=== PATIENT | female | born 2000 | race Caucasian/White ===

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

== ENCOUNTER 2021-08-18 15:42 | Outpatient (CLI) | payer OTHER ==
[2021-08-18 15:59] LABS: BASOPHILS % (AUTO) 0.3 %; EOSINOPHILS % (AUTO) 0.3 %; HCT - HEMATOCRIT 35.4 % (37.0-47.0); HGB - HEMOGLOBIN 11.4 g/dL (12.0-16.0); LYMPHOCYTES # (AUTO) 2.6 10^3/uL (1.5-3.5); LYMPHOCYTES % (AUTO) 20.2 %; MEAN CORPUSCULAR HEMOGLOBIN 26.7 pg (27.0-31.0); MEAN CORPUSCULAR HGB CONC 32.2 g/dL (32.0-36.0); MEAN CORPUSCULAR VOLUME 82.9 fL (81.0-99.0); MONOCYTES # (AUTO) 0.8 10^3/uL (0.0-1.0); MONOCYTES % (AUTO) 6.4 %; NEUTROPHILS # (AUTO) 9.2 10^3/uL (1.5-6.6); NEUTROPHILS % (AUTO) 72.2 %; PLT - PLATELET COUNT 354 10^3/uL (130-450); RED BLOOD COUNT 4.27 10^6/uL (4.20-5.40); RED CELL DISTRIBUTION WIDTH 14.7 % (12.0-15.0); WHITE BLOOD COUNT 12.7 x10^3/uL (4.8-10.8)
[2021-08-19 02:08] LABS: HBsAG SCREEN Negative (Negative)
[2021-08-19 05:29] LABS: HCV AB 0.1 s/co ratio (0.0-0.9); HIV SCREEN 4TH GENERATION Non Reactive (Non Reactive)
[2021-08-19 08:10] LABS: RPR Non Reactive (Non Reactive); VARICELLA-ZOSTER AB IGG 393 index (Immune >165)
== END 2021-08-18 15:43 | disposition home or self-care (01) ==
LOC: LAB 15:42
PROVIDERS: ATTEND Nurse Practitioner Obstetrics & Gynecology
DX: Z36.89 Encounter for other specified antenatal screening (principal)
CPT/HCPCS: 36415; 85025; 86592; 86762; 86787; 86803; 86850; 86900; 86901; 87340; 87389

== ENCOUNTER 2021-09-03 15:00 | Outpatient (CLI) | payer OTHER ==
--- NOTE | 2021-09-03 18:50 | Ultrasound Report ---
PROCEDURE: OB Detailed Eval INDICATIONS: SUPERVISION OF OUTSIDE/PRIOR DATING DATA: Last menstrual period (LMP): 04/27/2021. LMP-based estimated date of delivery (MRASHALL): In 2021. First dating scan (date and location): 09/03/2021. Estimated date of delivery (MARSHALL) from first dating scan: 01/30/2022. TECHNIQUE: Real-time scanning was performed of the fetus, with image documentation and biometric measurements. Endovaginal scanning: None COMPARISON: None. FINDINGS: General: A single living intrauterine gestation is present. Presentation: Variable Placenta: Placental position is anterior, without previa. Amniotic fluid index: 11.3 cm, normal for gestational age. heart rate: 136 beats per minute. Maternal cervical canal: 5.9 cm long; normal length is 2.5 cm or more. biometrics: Biparietal diameter: 4.3 cm, 19 week 0 day Head circumference: 16.1 cm, 18 week 6 day Abdominal circumference: 13.6 cm, 19 week 1 day Femur length: 2.7 cm, 18 week 3 day Estimated gestational age from initial scan: 18 week 5 day Composite gestational age from present scan: 18 week 5 day Estimated weight and percentile: 256.3 g, 66th percentile Measurement variability in biometric dating: +/- 10 days from 12-20 weeks gestation, +/- 2 weeks from 20-30 weeks gestation, +/- 3 weeks at 30 weeks gestation or later. Anatomic survey: Neuro: Ventricles are normal at less than 10 mm. Cisterna magna is normal at 3-11 mm. Cerebellum i s normal in size and morphology. Nuchal skin fold: Normal at less than 6 mm between 14 and 20 weeks gestational age. Face: Nose and lips, facial profile are normal. Spine: No evidence for spina bifida. Heart: 4-chambered heart is present, with normal ventricular outflow tracts. Diaphragm: Diaphragm is intact. Stomach: Left-sided stomach is present. Kidneys: No hydronephrosis. Normal is less than 5 mm in 2nd trimester, less than 7 mm in 3rd trimester. Cord: 3 vessel cord has orthotopic insertion. Bladder: Normal in size. Extremities: All 4 extremities are visualized. IMPRESSION: Single live intrauterine consistent with 18 week 5 day gestation Reviewed by: Mike Loving MD on 09/03/2021 5:49 PM AKDT Approved by: Mike Loving MD on 09/03/2021 5:49 PM FARHAN Station ID: [id number]
== END 2021-09-03 15:01 | disposition home or self-care (01) ==
LOC: DI 15:00
PROVIDERS: ATTEND Nurse Practitioner Obstetrics & Gynecology
DX: Z34.02 Encounter for supervision of normal first pregnancy, second trimester (principal); Z36.89 Encounter for other specified antenatal screening

== ENCOUNTER 2021-12-10 13:22 | Outpatient (CLI) | payer OTHER ==
[2021-12-10 13:31] LABS: HCT - HEMATOCRIT 35.5 % (37.0-47.0); HGB - HEMOGLOBIN 11.5 g/dL (12.0-16.0); MEAN CORPUSCULAR HEMOGLOBIN 26.9 pg (27.0-31.0); MEAN CORPUSCULAR HGB CONC 32.4 g/dL (32.0-36.0); MEAN CORPUSCULAR VOLUME 83.1 fL (81.0-99.0); MEAN PLATELET VOLUME 9.6 fL (7.9-10.8); RED BLOOD COUNT 4.27 10^6/uL (4.20-5.40); RED CELL DISTRIBUTION WIDTH 18.9 % (12.0-15.0); WHITE BLOOD COUNT 13.6 x10^3/uL (4.8-10.8)
== END 2021-12-10 13:23 | disposition home or self-care (01) ==
LOC: LAB 13:22
PROVIDERS: ATTEND Nurse Practitioner Obstetrics & Gynecology
DX: O99.011 Anemia complicating pregnancy, first trimester (principal)
CPT/HCPCS: 36415; 85027

== ENCOUNTER 2022-01-23 02:23 | Inpatient (IN) | payer OTHER ==
[2022-01-23] MEDS ORDERED: fentaNYL 100 MCG/2 ML VIAL IVP PRN (04:33)
[2022-01-23] MEDS ORDERED: hydrALAZINE INJ 20 MG/ML VIAL IVP PRN ×2 (04:33)
[2022-01-23] MEDS ORDERED: miSOPROStoL 200 MCG TABLET BC PRN (04:33)
[2022-01-23] MEDS ORDERED: LABETALOL 20 MG/4 ML SYRINGE IVP PRN ×3 (04:33)
[2022-01-23] MEDS ORDERED: SODIUM CHLORIDE FLUSH 0.9% 10 ML SYRINGE IVP PRN (04:33)
[2022-01-23] MEDS ORDERED: NIFEdipine 10 MG CAPSULE PO PRN (04:33)
[2022-01-23] MEDS ORDERED: METHYLERGONOVINE 0.2 MG/ML VIAL IM PRN (04:33)
[2022-01-23] MEDS ORDERED: TRANEXAMIC ACID IN NACL 1,000 MG/100 ML BAG IV PRN (04:33)
[2022-01-23] MEDS ORDERED: TERBUTALINE 1 MG/ML VIAL SUBQ PRN (04:33)
[2022-01-23] MEDS ORDERED: OXYTOCIN 10 UNIT/ML VIAL IM PRN (04:33)
[2022-01-23] MEDS ORDERED: CARBOPROST TROMETHAMINE 250 MCG/ML AMP IM PRN (04:33)
[2022-01-23] MEDS ORDERED: lidocaine 1% 20 ML MDV ID PRN (04:33)
[2022-01-23] MEDS ORDERED: miSOPROStoL 200 MCG TABLET PR PRN (04:33)
[2022-01-23] MEDS ORDERED: OXYTOCIN/SODIUM CHLORIDE 500 ML IV PRN (04:33)
[2022-01-23] MEDS ORDERED: SODIUM CHLORIDE FLUSH 0.9% 10 ML SYRINGE IVP SCH (05:00)
[2022-01-23 06:25] LABS: BASOPHILS # (AUTO) 0.1 10^3/uL (0.0-0.1); BASOPHILS % (AUTO) 0.4 %; EOSINOPHILS % (AUTO) 0.1 %; HCT - HEMATOCRIT 37.3 % (37.0-47.0); HGB - HEMOGLOBIN 12.6 g/dL (12.0-16.0); LYMPHOCYTES # (AUTO) 1.9 10^3/uL (1.5-3.5); LYMPHOCYTES % (AUTO) 11.9 %; MEAN CORPUSCULAR HEMOGLOBIN 27.8 pg (27.0-31.0); MEAN CORPUSCULAR HGB CONC 33.8 g/dL (32.0-36.0); MEAN CORPUSCULAR VOLUME 82.3 fL (81.0-99.0); MEAN PLATELET VOLUME 10.2 fL (7.9-10.8); MONOCYTES # (AUTO) 1.1 10^3/uL (0.0-1.0); MONOCYTES % (AUTO) 6.8 %; NEUTROPHILS # (AUTO) 12.3 10^3/uL (1.5-6.6); NEUTROPHILS % (AUTO) 79.4 %; PLT - PLATELET COUNT 239 10^3/uL (130-450); RED BLOOD COUNT 4.53 10^6/uL (4.20-5.40); RED CELL DISTRIBUTION WIDTH 17.1 % (12.0-15.0); WHITE BLOOD COUNT 15.5 x10^3/uL (4.8-10.8)
[2022-01-23] MEDS ORDERED: LACTATED RINGERS 1,000 ML ONE (07:37)
--- NOTE | 2022-01-23 07:55 | HISTORY & PHYSICAL EXAMINATION ---
Admit History - Visit Reason Visit Reason: Contractions - : 1 Parity: 0 Premature: 0 Ectopic: 0 : 0 Care: positive: [facility] Risk/History: positive: None Complications This : positive: None Smoking Status: Never smoker - Mother's Labs Mother's Blood Type: positive: O Mother's RH: positive: Positive GBS: positive: Group B Step Negative Rubella Status: positive: Immune Meds/Allgy - Home Medications Home Medications: Ambulatory Orders Medication Instructions Recorded Confirmed Albuterol Sulfate [Albuterol 1 puffs INH Q4HR PRN 11/20/13 06/22/20 Sulfate Hfa] Omeprazole Magnesium 20 mg PO DAILY 06/22/20 07/17/20 Albuterol Sulf [Ventolin Hfa 2 - 3 puffs INH Q4HR PRN #1 inhaler 07/17/20 Inhaler] HYDROcod/ACETAM 5/325 [[place] 5/325] 1 ea PO Q6H PRN #14 tablet 07/17/20 Saysara 0 mg DAILY 07/17/20 dexAMETHasone [Decadron] 4 mg PO DAILY #7 tablet 07/17/20 - Allergies Allergies/Adverse Reactions: Allergies Allergy/AdvReac Type Severity Reaction Status Date / Time Antihistamines - Piperidine Allergy Respiratory Verified 07/17/20 11:09 naproxen [From Aleve] AdvReac Itching Verified 07/17/20 11:09 Review of Systems - Constitutional Constitutional: denies: Fatigue, Fever, Chills, Malaise - Eyes Eyes: denies: Blurred vision, Spots in vision, Dipolpia - Cardiovascular Cariovascular: denies: Irregular heart rate, Palpitations, Chest pain, Edema - Respiratory Respiratory: denies: Cough, Wheezing, SOB at rest - Gastrointestinal Gastrointestinal: denies: Constipation, Diarrhea, Nausea, Vomiting - Genitourinary Genitourinary: denies: Dysuria - Integumentary Integumentary: denies: Rash, Pruritis - Neurological Neurological: denies: Headache Physical - Abdominal Exam Vital Signs: Temp Pulse Resp BP Pulse Ox O2 Flow Rate 36.9 C 75 20 112/77 100 01/23/22 05:23 01/23/22 05:23 01/23/22 05:23 01/23/22 05:23 01/23/22 02:45 Contraction Frequency (min/apart): 2-4 Contraction Intensity: positive: Strong Uterine Resting Tone: positive: Soft - Monitoring Heart Rate Baseline: 135 Strip Review: positive: Category I - Presentation Presentation: positive: Vertex - Vaginal Exam Membranes: positive: Membranes intact Dilation (in cm): 7 Effacement (%): 100 Station: positive: -1 Cervical Position: positive: Midposition - Speculum Exam Speculum Exam Performed: positive: No Plan for Labor - Plan For Labor I expect patient to be DC'd or transferred within 96 hours.: Yes Plan for Labor: HPI: Rajiv is a 21yo @ 39.0wks gestation by 18.5wk ultrasound which was not consistent with her reportedly unknown LMP dating. She reports contractions started 01/22/2022 @ approximately 2200 and have increased in frequency and intensity since that time. She denies vaginal bleeding or leakage of fluid. She reports +FM. SVE upon arrival /-2, posterior and vertex with intact membranes. Pt monitored x 1 hour and repeat SVE reveals cervical change with SVE 80/-1, midposition and vertex. She was admitted for expectant management. She has been a patient of [facility] for the duration of her for which she was late to seek care with first visit at 16wks gestation. She had an unsure LMP which was not consistent with her initial ultrasound at 18wks and therefore is dated by an 18.5wk ultrasound. She has limited financial resources and she and her partner Tyler are currently living with the patient's parents in [place] and neither of them are employed at this time. Her has been complicated by mild anemia for which FeSO4 was initiated at 27wks gestation and her lab values responded well to oral supplementation. Her has otherwise remained uncomplicated and she has received consistent care since 16wks gestation. Dating criteria: LMP unknown Initial U/S @ 18.5wks dates with [facility] 01/30/2022 Serial exams - agree vendette Hx: Term NSVB x 0. SAB x0. No pap history. Denies HSV in self and partner. Medical Hx: no significant Surgical Hx: eye surgery x 2 Family Hx: HTN - father; breast cancer - mother; bone cancer - mother; schi zophrenia - MGM; bipolar - MGM Meds: PNV, FeSO4 bid, Citalopram 20mg, omeprazole 40mg, albuterol inhaler PRN - has not used in several years. Allergies: Naproxen Social: Single lives with partner Tyler. She is not currently working and neither is her partner. Her parents live in [place] and have offered to move them in with them to help out. She states her parents are supportive. Past THC use but quit for . No tobacco, ETOH or recreational drug use currently. Caffeine intake -minimal. course: O pos; antibody neg Rubella immune; varicella immune Initial U/S @ 18wks dates FAS WNL. Anterior placenta, no previa. 3VC. Glucola 131 GBS neg Tdap @ 32wks Covid x 2 - no booster GBS negative Physical exam: Normocephalic, atraumatic Heart RRR w/o M/G/R Lungs CTAB Abdomen gravid, soft, nontender. EFW 3400g FHR baseline 130s, moderate variability, + accels, no decels Contractions palpate strong every 2-4 minutes with soft resting tone SVE 4/90/-2, midposition, vertex with intact membranes. Bilateral LE's trace edema. Mood is good. Assessment: 21yo @ 39.0wks gestation by 18.5wk U/S Active labor GBS neg FHR Category I Plan: Admit to [facility] for expectant management. Continuous monitoring. Jacuzzi PRN. Nitrous oxide PRN. Epidural per maternal request. Anticipate .
[2022-01-23] MEDS ORDERED: ROPIVACAINE 0.2% 200 MG/100 ML BAG EP ONE (08:07)
--- NOTE | 2022-01-23 08:09 | PROVIDER PROGRESS NOTE ---
Labor Progress Note - Uterine Monitoring Uterine Monitoring Mode: positive: External toco Contraction Frequency (min/apart): 2-4 Contraction Intensity: positive: Strong Uterine Resting Tone: positive: Soft - Monitoring Monitor Mode: positive: External ultrasound Heart Rate Baseline: 130 Heart Rate Variability: positive: Moderate (6-25 bmp) Accelerations: positive: Present, 15x15 Decelerations: positive: None Strip Review: positive: Category I - Vaginal Exam Dilation (in cm): 7 Effacement (%): 100 Station: -1 Cervical Position: Midposition - Labor Progress Note Labor Progress Note/Additional Text: S: Breathing through contractions and requests epidural at this time. A small amount of bloody show was present on pad when she removed it for SVE. She denies leakage of fluid. She reports +FM. Her partner Tyler is supportive at the bedside. O: FHR baseline 130, moderate variability, + accels, no decels Contractions palpate strong every 2-4 minutes with soft resting tone SVE 7/100/-1, midposition. Vertex with bulging membranes. A: 21yo @ 39.0wks gestation by 18.5wk U/S Active labor GBS neg FHR Category I P: Anesthesia notified for placement of epidural per pt request. Continuous monitoring. Anticipate .
[2022-01-23] MEDS ORDERED: LACTATED RINGERS 1,000 ML IV SCH (09:00)
[2022-01-23] MEDS ORDERED: ePHEDrine 50 MG/ML VIAL IVP PRN (09:30)
[2022-01-23] MEDS ORDERED: NALBUPHINE 10 MG/ML AMP IVP PRN (09:30)
[2022-01-23] MEDS ORDERED: METOCLOPRAMIDE 10 MG/2 ML VIAL IVP PRN (09:30)
[2022-01-23] MEDS ORDERED: ROPIVACAINE 0.2% 200 MG/100 ML BAG EP PRN (09:30)
[2022-01-23] MEDS ORDERED: diphenhydrAMINE INJ 50 MG/ML VIAL IVP PRN (09:30)
[2022-01-23] MEDS ORDERED: NALOXONE 0.4 MG/ML VIAL IVP PRN (09:30)
[2022-01-23] MEDS ORDERED: ONDANSETRON 4 MG/2 ML VIAL IVP PRN (09:30)
--- NOTE | 2022-01-23 09:30 | ANESTHESIA ---
Pre-Anesthesia VS, & Labs - Diagnosis active labor - Procedure labor epidural Vital Signs: Temp Pulse Resp BP Pulse Ox O2 Flow Rate 36.9 C 75 20 112/77 100 01/23/22 05:23 01/23/22 05:23 01/23/22 05:23 01/23/22 05:23 01/23/22 02:45 Height: 5 ft 4 in Weight (kg): 79.832 kg Body Mass Index: 30.2 BMI Classification: Obese - NPO Other (drinking up until epidural) - Is Patient ?: Yes - Lab Results Current Lab Results: Laboratory Tests 01/23/22 05:45: WBC 15.5 H, RBC 4.53, Hgb 12.6, Hct 37.3, MCV 82.3, MCH 27.8, MCHC 33.8, RDW 17.1 H, Plt Count 239, MPV 10.2, Neut # (Auto) 12.3 H, Lymph # (Auto) 1.9, Wheeler # (Auto) 1.1 H, Eos # (Auto) 0.0, Baso # (Auto) 0.1, Absolute Nucleated RBC 0.00, Nucleated RBC % 0.0 01/23/22 05:45: Blood Type O POSITIVE, Antibody Screen NEGATIVE Fish Bones: 01/23/22 05:45 Home Medications and Allergies Active Medications Carboprost Tromethamine (Carboprost Tromethamine 250 Mcg/Ml Amp) 250 mcg IM .ONCE PRN PRN Reason: Hemorrhage Fentanyl (Fentanyl 100 Mcg/2 Ml Vial) 50 mcg IVP Q1H PRN PRN Reason: Severe Pain (score 7-10) Hydralazine HCl (Hydralazine Inj 20 Mg/Ml Vial) 5 - 10 mg IVP Q20M PRN; Protocol PRN Reason: SBP> or= 160 OR DBP> or= 110 Hydralazine HCl (Hydralazine Inj 20 Mg/Ml Vial) 10 mg IVP .ONCE PRN; Protocol PRN Reason: SBP> or= 160 OR DBP> or= 110 Oxytocin/Sodium Chloride (Pitocin/Sodium Chloride) 500 mls @ 999 mls/hr IV PRN PRN; Protocol PRN Reason: POST- HEMORR PREVENTION Tranexamic Acid (Tranexamic 1,000 Mg/100ml-Nacl) 1,000 mg in 100 mls @ 600 mls/hr IV Q30M PRN PRN Reason: EBL >1200mL and within 3hr Lactated Ringer's (Lr) 1,000 mls @ 125 mls/hr IV .Q8H EDWAR Labetalol HCl (Labetalol 20 Mg/4 Ml Syringe) 20 - 80 mg IVP Q10M PRN; Protocol PRN Reason: SBP> or= 160 OR DBP> or= 110 Labetalol HCl (Labetalol 20 Mg/4 Ml Syringe) 20 mg IVP .ONCE PRN; Protocol PRN Reason: SBP> or= 160 OR DBP> or= 110 Labetalol HCl (Labetalol 20 Mg/4 Ml Syringe) 20 - 40 mg IVP Q10M PRN; Protocol PRN Reason: SBP> or= 160 OR DBP> or= 110 Lidocaine HCl (Lidocaine 1% 20 Ml Mdv) 20 ml ID .ONCE PRN PRN Reason: PERINEAL REPAIR Stop: 01/26/22 04:38 Methylergonovine Maleate (Methylergonovine 0.2 Mg/Ml Vial) 0.2 mg IM .ONCE PRN PRN Reason: Hemorrhage Misoprostol (Misoprostol 200 Mcg Tablet) 600 mcg BC .ONCE PRN PRN Reason: Hemorrhage Misoprostol (Misoprostol 200 Mcg Tablet) 800 mcg CA .ONCE PRN PRN Reason: Hemorrhage Nifedipine (Nifedipine 10 Mg Capsule) 10 - 20 mg PO Q20M PRN; Protocol PRN Reason: SBP> or= 160 OR DBP> or= 110 Oxytocin (Oxytocin 10 Unit/Ml Vial) 10 unit IM .ONCE PRN PRN Reason: Step One if no IV access. Sodium Chloride (Sodium Chloride Flush 0.9% 10 Ml Syringe) 10 ml IVP PRN PRN PRN Reason: NEEDED PER PROVIDER ORDERS Sodium Chloride (Sodium Chloride Flush 0.9% 10 Ml Syringe) 10 ml IVP Q8H EDWAR Terbutaline Sulfate (Terbutaline 1 Mg/Ml Vial) 0.25 mg SUBQ .ONCE PRN PRN Reason: Tachystole Albuterol Sulfate [Albuterol Sulfate Hfa] 1 puffs INH Q4HR PRN 11/20/13 Omeprazole Magnesium 20 mg PO DAILY 06/22/20 Saysara 0 mg DAILY 07/17/20 Allergies/Adverse Reactions: Allergies Allergy/AdvReac Type Severity Reaction Status Date / Time Antihistamines - Piperidine Allergy Respiratory Verified 07/17/20 11:09 naproxen [From Aleve] AdvReac Itching Verified 07/17/20 11:09 Anes History & Medical History - Anesthetic History Anesthesia Complications: reports: No previous complications Family history of Anesthesia Complications: Denies Family history of Malignant Hyperthermia: Denies - Medical History Cardiovascular: reports: None Pulmonary: reports: Asthma Gastrointestinal: reports: GERD Smoking Status: Never smoker - Obstetrical History : 1 Parity: 0 Events: reports: None Complications: reports: None Exam General: Alert, Oriented x3, Cooperative Dental: WNL Mouth Openin Fingerbreadth Neck Mobility: Normal Mallampati classification: II Thyromental Distance: 4-6 cm Respiratory: Lungs clear Cardiovascular: Regular rate Plan Anesthesia Type: Epidural Consent for Procedure(s) Verified and Reviewed: Yes Code Status: Attempt Resuscitation ASA classification: 2-Mild systemic disease Is this case an emergency?: No
[2022-01-23] MEDS ORDERED: HYDROCORTISONE 1% CREAM 28 GM TUBE PR PRN (12:27)
[2022-01-23] MEDS ORDERED: WITCH HAZEL/GLYCERIN 1 PAD TOP PRN (12:27)
--- NOTE | 2022-01-23 12:27 | DELIVERY NOTE ---
Delivery Note - Labor Labor: positive: Spontaneous - Delivery Method Delivery Method: positive: Spontaneous vaginal delivery - Presentation Presentation: positive: Vertex, DEMETRIUS - right occiput anterior - Nuchal Cord Nuchal Cord: positive: None - Amniotic Fluid Description Amniotic Fluid Description: positive: Clear - Episiotomy Type Episiotomy Type: positive: None - Laceration Laceration: positive: 1st degree, Vaginal - Suture Suture Type: positive: Vicryl Suture Size: positive: 2-0 - Delivery Outcome Delivery Outcome: positive: Livebirth - Ranger : positive: Placed in direct skin contact with mother, Bulb syringe, Stimulated, Warmed, Morven used, Warmer used sex: positive: Male - Cord Cord: positive: 3 vessels - Placenta Placenta: positive: Intact, Spontaneous - Estimated Blood Loss Estimated Blood Loss (in cc): 200 - Post Delivery Events Post Delivery Events: positive: No post delivery events - Delivery Comments (Free Text/Narrative) Delivery Comments (Free Text/Narrative): Labor: This 21yo @ 39.0wks gestation by 18.5wk U/S presented on 01/23/2022 in active labor. She was noted to be 3/90/-1 with a repeat 4/90/-1 an hour later and vertex. FHR pattern demonstrated Category I pattern throughout labor. SROM @ 0753 was noted to be a moderate amount of clear fluid. Epidural was placed per maternal request however was unable to give patient relief from her contractions likely secondary to advanced dilation. Normal labor course. Pt progressed to c/c/0 @ 0846 with onset of pushing at 0847. : Normal SVB of viable male infant on 01/23/2022 @ 1045. No nuchal cord. The was placed on maternal abdomen, stimulated, dried and secondary to lack of respiratory effort, was moved to infant warmer at 60 seconds of life for evaluation. Apgars were 5/9 at 1 and 5 minutes respectively. Pitocin administered via IV for hemostatis. Cord blood was obtained. Fundal massage and gentle cord traction applied for active management of the third stage. 3VC. Pitocin delivered spontaneously and intact at 1050. EBL 200mL. Fourth stage: Uterine fundus firm and there is no excessive bleeding. The perineum, vagina, and cervix were inspected and found to have 1st degree laceration which was repaired using a 2-[address]-1 needle in standard fashion and under sterile conditions. Vaginal examination follow repair was done. Tissues well approximated. initiated. Family bonding well. Both mother and baby were left in stable condition.
[2022-01-23] MEDS: ACETAMINOPHEN 500 MG TABLET PO SCH (14:26)
[2022-01-23] MEDS: DOCUSATE SODIUM 100 MG CAPSULE PO SCH (20:38)
[2022-01-24] MEDS: ACETAMINOPHEN 500 MG TABLET PO SCH ×2 (07:28→15:40)
[2022-01-24] MEDS: DOCUSATE SODIUM 100 MG CAPSULE PO SCH ×2 (08:20→21:49)
[2022-01-25] MEDS: ACETAMINOPHEN 500 MG TABLET PO SCH (00:20)
--- NOTE | 2022-01-25 10:52 | Discharge Plan ---
Discharge Plan Problem Reviewed?: Yes Disposition: Home, Self Care Condition: Good Diet: Regular Activity Restrictions: No Restrictions Shower Restrictions: No Instruction Topics: Vaginal After No Smoking: If you smoke, Please STOP! Call for help. Follow-up with: Abigail Gunderson CNM, ARNP [Provider Admit Priv/Credential] -
--- NOTE | 2022-01-25 10:57 | DISCHARGE SUMMARY ---
Discharge Summary Condition at Discharge: Good Discharge Disposition: 01 Home, Self Care - HOSPITAL COURSE Hospital Course: Date of Admission:01/23/2022 Date of Discharge: 01/25/2022 Diagnosis on Admission: 1. 21yo @ 39.0wks gestation by 18.5wk U/S 2. Active labor 3. GBS neg 4. FHR Category I Diagnosis on Discharge: 1. 21yo PPD#2 s/p TSVD viable male infant 2. 3. Normal recovery Brief History: She is a patient of [facility] who presented on 01/23/2022 in active labor. Upon arrival she was noted to be 3/90/-1 with repeat in 1 hour 4/90/-1 with intact membranes. SROM @ 0753 was noted to be a moderate amount of clear fluid. She progressed spontaneously to deliver a viable male on 01/23/2022 @ 1045 followed a prolonged 2nd stage and over intact perineum. Apgars were 5/9 at 1 and 5 minutes respectively. EBL 200mL. She has been doing well in her course. She is ambulating and tolerating a regular diet. She is urinating without difficulty and her lochia is normal. Her pain is well controlled with oral medications. She is bonding well with her baby and is without difficulty. She will be discharged home today on day #2 with instructions to continue taking her vitamin while and to continue taking ibuprofen and tylenol over the counter as needed for pain management. She intends to follow up with myself at [facility] in 1 week for routine visit or sooner if needed. She has been given precautions to call if she has any worsening fevers, chills, abdominal pain, increased vaginal bleeding or foul smelling vaginal lochia. Physical Exam: Normocephalic, atraumatic. Heart RRR w/o M/G/R, lungs CTAB, abdomen soft and nontender with fundus firm at U-2, perineum intact, light lochia rubra, bilateral LE's trace edema. Mood is good. - ALLERGIES Allergies/Adverse Reactions: Allergies Allergy/AdvReac Type Severity Reaction Status Date / Time Antihistamines - Piperidine Allergy Respiratory Verified 07/17/20 11:09 naproxen [From Aleve] AdvReac Itching Verified 07/17/20 11:09 - MEDICATIONS Home Medications: Ambulatory Orders Medication Instructions Recorded Confirmed Albuterol Sulfate [Albuterol 1 puffs INH Q4HR PRN 11/20/13 06/22/20 Sulfate Hfa] Omeprazole Magnesium 20 mg PO DAILY 06/22/20 07/17/20 Albuterol Sulf [Ventolin Hfa 2 - 3 puffs INH Q4HR PRN #1 inhaler 07/17/20 Inhaler] HYDROcod/ACETAM 5/325 [Fletcher 5/325] 1 ea PO Q6H PRN #14 tablet 07/17/20 Saysara 0 mg DAILY 07/17/20 dexAMETHasone [Decadron] 4 mg PO DAILY #7 tablet 07/17/20 - LABS Result Diagrams: 01/23/22 05:45
[2022-01-25 12:13] VITALS: BP 120/71
--- NOTE | 2022-01-25 12:19 | Labor Flowsheet ---
Labor Flowsheet Datetime Report Generated by CPN: 01/25/2022 12:18 Datetime: 01/24/2022 04:19 VITAL SIGNS NBP Sys/Kalyn/Mean (mmHg): 103 : 43 : 58 Pulse: 68 Datetime: 01/23/2022 12:25 Stage of : Recovery Respirations: 17 SpO2 (%): 98 Temperature (C): 36.6 Temperature Route: Oral PAIN Pain Scale: 4 Pain Presence: Intermittent Datetime: 01/23/2022 10:30 Pushing Progress: Descent with Pushing Datetime: 01/23/2022 10:15 UTERINE ACTIVITY Monitor Mode: External Frequency (min): 2-3 Quality: Strong Duration (sec): 50 Pattern: Normal: <= 5 Contractions in 10 Minutes Resting Tone (Palpate): Relaxed Comments: 135-150 in between pushing LaborFlag: Labor Datetime: 01/23/2022 09:45 ASSESSMENT A Monitor Mode: Telemetry FHR Baseline Rate : 135 FHR Baseline Changes: No Baseline Change Variability: Moderate 6-25 bpm Accelerations: 15X15 Decelerations: None Category: Category I Oxygen Method: Room Air Datetime: 01/23/2022 09:00 Monitor Interventions for FHR: Ultrasound Adjusted Datetime: 01/23/2022 08:47 VAGINAL EXAM Dilatation (cm): 10.0 STAGE 2 Pushing: Coached on Pushing; Urge to Push Pushing Position: Pushing with Contractions Datetime: 01/23/2022 08:39 Exam by: terry dany cnm Datetime: 01/23/2022 08:28 Epidural Procedure Other: Pump Started Datetime: 01/23/2022 08:26 Patient Position/Activity: Left Tilt Datetime: 01/23/2022 08:23 PROCEDURE TIME OUT Procedure Verify: Correct Patient Identity; Accurate Procedure Consent Form; Agreement on Procedure to be Done; Correct Patient Position; Addressed Need to Administer Antibiotics or Fluids for Irrigat ion; Safety Precautions Based on Patient History or Medication Use ANESTHESIA Anesthesia Plans: Epidural Epidural Positioning: Sitting Epidural Procedure: Cath Placed Datetime: 01/23/2022 08:14 Pain Assessment Comments: feeling pressure COMMUNICATION Communication: Provider at Bedside Communication Comments: terry dany at bedside to check cervix prior to epidural Datetime: 01/23/2022 08:10 Anesthesia Comments: tyler here for epidural placement Datetime: 01/23/2022 07:57 PATIENT CARE IV/Blood Work: IV Bolus Started Datetime: 01/23/2022 07:51 Pain Coping: Requesting Pain Medication or Epidural Datetime: 01/23/2022 07:48 Effacement (%): 100 Station: -1 Datetime: 01/23/2022 07:23 Patient Care Comments: using nitrous Datetime: 01/23/2022 06:30 Bedside Blood Glucose: 36 Datetime: 01/23/2022 06:22 MEDICATIONS Medication Comments: nitrous started
--- NOTE | 2022-01-25 13:17 | PROVIDER PROGRESS NOTE ---
Subjective - Subjective Subjective: S: Bonding well with baby. without difficulty. Bleeding is decreased and is light. Pain well controlled with oral medications. Partner Tyler supportive at the bedside. O: Heart RRR w/o M/G/R, lungs CTAB, abdomen soft and nontender with fundus firm at U, perineum intact, light lochia rubra, bilateral LE's no edema. Mood is good. A: 21yo -->P1 PPD#1 s/p TSVD viable male Normal recovery P: Continue routine pp care and medications. Social work consult pending Evaluate for discharge home tomorrow. Objective - Vital Signs/Intake & Output Vital Signs: Vital Signs x48h Temp Pulse Resp BP Pulse Ox 01/25/22 10:00 36.8 C 70 16 120/71 99 Intake & Output: Intake & Output 01/23/22 01/23/22 01/24/22 01/25/22 00:59 23:59 23:59 23:59 Intake Total 300 Output Total Balance 300 - Lab Results Fish Bones: 01/23/22 05:45
--- NOTE | 2022-01-28 10:21 | ANESTHESIA POST OP EVALUATION ---
Anesthesia Post Eval - Post Anesthesia Eval Vitals: Last Vital Signs Temp 36.8 C 01/25/22 10:00 Pulse 70 01/25/22 10:00 Resp 16 01/25/22 10:00 BP 120/71 01/25/22 10:00 Pulse Ox 99 01/25/22 10:00 O2 Flow Rate CV Function Including HR & BP: Stable Pain Control: Satisfactory Nausea & Vomiting: Negative Mental Status: Baseline Respiratory Status: Airway Patent Hydration Status: Satisfactory Anesthesia Complications: None
--- NOTE | 2022-02-01 14:57 | PROCEDURE REPORT ---
- HPI Diagnosis/Indication for NST: Other Current EDU 01/30/22 Gestation 39 Weeks and 0 Days 1 Para 0 Vital Signs Temperature 36.9 C 01/23/22 02:45 Heart Rate 75 01/23/22 02:45 Respiratory Rate 20 01/23/22 02:45 Blood Pressure 112/77 01/23/22 02:45 O2 Saturation 100 01/23/22 02:45 Temperature 36.8 C 01/25/22 10:00 Heart Rate 70 01/25/22 10:00 Respiratory Rate 16 01/25/22 10:00 Blood Pressure 120/71 01/25/22 10:00 O2 Saturation 99 01/25/22 10:00 If not protocol: Oxygen Flow, liters/minute - NST Procedure NST Procedure Start Date 01/23/22 Start Time 02:52 Stop Time 03:12 Vibroacoustic Stimulation Used No Patient States Movement Yes - Results and Plan Plan: NST performed 01/23/2022 NST read 01/23/2022 NST reactive. FHR baseline 140s, moderate variability, + accels, no decels Contractions palpate firm every 2-3 minutes with soft resting tone
== END 2022-01-25 11:40 | disposition home or self-care (01) | DRG 807 ==
LOC: WFO 02:23 → FBP 02:26 → WFO 04:14 → FBP 04:15
PROVIDERS: ADMIT Nurse Practitioner Obstetrics & Gynecology; ATTEND Nurse Practitioner Obstetrics & Gynecology
PROC: 0HQ9XZZ Repair Perineum Skin, External Approach (ICD-10-PCS; principal; 2022-01-23)
PROC: 10E0XZZ Delivery of Products of Conception, External Approach (ICD-10-PCS; 2022-01-23)
DX: O70.0 First degree perineal laceration during delivery (principal); Z37.0 Single live birth; O63.1 Prolonged second stage (of labor); Z3A.39 39 weeks gestation of pregnancy; Z56.0 Unemployment, unspecified
CPT/HCPCS: 59025; 85025; 86850; 86900; 86901; 99215; A9270; J7120

== ENCOUNTER 2022-03-27 19:15 | Emergency (ER) | payer MEDICAID, OTHER ==
[2022-03-27 19:27] VITALS: BP 100/44
--- NOTE | 2022-03-27 19:51 | XRAY Report ---
PROCEDURE: Wrist 3 View LT INDICATIONS: proxima wrist/thumb pain TECHNIQUE: 3 views of the wrist were acquired. COMPARISON: Right wrist radiographs 03/14/2019. FINDINGS: Bones: No fractures or dislocations. No suspicious bony lesions. Soft tissues: No suspicious soft tissue calcifications. IMPRESSION: No acute osseous abnormality. If symptoms persist, follow-up radiographs and/or CT or MRI may be help ful for further evaluation. Reviewed by: John Webb MD on 03/27/2022 7:50 PM PST Approved by: John Webb MD on 03/27/2022 7:50 PM PST Station ID: [id number]
[2022-03-27] MEDS ORDERED: IBUPROFEN 600 MG TABLET PO STA (20:16)
--- NOTE | 2022-03-27 20:19 | ED Physician Documentation ---
History of Present Illness - Stated complaint Stated Complaint: LT WRIST PX - Chief complaint Chief Complaint: Ext Problem - History obtained from History obtained from: Patient - Additonal information Additional information: 22-year-old woman with history of right wrist tendinopathy, [id number], presents with left wrist pain for the past 1-1/2 weeks, first noticed after waking from sleep. Patient has had waxing and waning pain since that time and it was worse today so she came to the emergency department. Has not tried NSAIDs or other [id number] analgesics for pain but does state that icing helps. She does have a wrist brace from home. note just had a new baby two months ago. Review of Systems Musculoskeletal: reports: Joint pain PD PAST MEDICAL HISTORY - Past Medical History Past Medical History: Yes Cardiovascular: None Respiratory: Asthma GI: GERD - Past Surgical History Past Surgical History: Yes - Present Medications Home Medications: Ambulatory Orders Medication Instructions Recorded Confirmed Albuterol Sulfate [Albuterol 1 puffs INH Q4HR PRN 11/20/13 03/27/22 Sulfate Hfa] Omeprazole Magnesium 20 mg PO DAILY 06/22/20 03/27/22 Norethindrone 1 tab PO DAILY 03/27/22 03/27/22 - Allergies Allergies/Adverse Reactions: Allergies Allergy/AdvReac Type Severity Reaction Status Date / Time Antihistamines - Piperidine Allergy Respiratory Verified 03/27/22 19:21 naproxen [From Aleve] AdvReac Itching Verified 03/27/22 19:21 - Social History Does the pt smoke?: No Smoking Status: Never smoker Does the pt drink ETOH?: Yes Does the pt have substance abuse?: No - Immunizations Immunizations are current?: Yes - POLST Patient has POLST: No PD ED PE NORMAL - Vitals Vital signs reviewed: Yes - General General: Alert and oriented X 3, No acute distress, Well developed/nourished - HEENT HEENT: Atraumatic, PERRL, EOMI - Derm Derm: Normal color, Warm and dry - Extremities Extremities: Other (L radial pulse intact. normal cap refill, movement, sensation. radial aspect of volar wrist discomfort to palpation. discomfort with full flexion of wrist.) - Psych Psych: Normal mood, Normal affect Results - Vitals Vitals: Vital Signs - 24 hr 03/27/22 19:23 Temperature 36.8 C Heart Rate 74 Respiratory 16 Rate Blood Pressure 100/44 L O2 Saturation 97 Oxygen O2 Source Room air PD Medical Decision Making - ED course ED course: 22-year-old woman presented with new onset left wrist discomfort consistent with tendinopathy. XR negative for fracture. 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 Wrist splint placed and symptomatic care discussed. Referral placed to orthopedics as needed. Plan to follow-up with primary care provider. Departure - Departure Disposition: 01 Home, Self Care Clinical Impression: Tendinopathy Condition: Good Instructions: ED RICE Follow-Up: Dionisio Pang MD [Provider Admit Priv/Credential] - Comments: You were seen in the emergency department for tendinitis of the wrist. Please continue to wear a wrist splint during the day and ice for 20 minutes every hour. elevate above the level of the heart. Take ibuprofen 600 mg every 6 hours as needed for pain. Return to the emergency department for new or worsening symptoms or other concerns. I have enclosed a referral to orthopedics and you can follow-up with them as needed.
== END 2022-03-27 20:26 | disposition home or self-care (01) ==
LOC: ED 19:15
DX: M77.8 Other enthesopathies, not elsewhere classified (principal)
CPT/HCPCS: 99283

== ENCOUNTER 2022-05-28 14:11 | Emergency (ER) | payer MEDICAID ==
[2022-05-28 14:34] VITALS: BP 116/61
--- NOTE | 2022-05-28 14:36 | ED Physician Documentation ---
PD HPI UPPER EXT INJURY - Stated complaint Stated Complaint: L WRIST INJ F/U - Chief complaint Chief Complaint: Ext Problem - History obtained from History obtained from: Patient - History of Present Illness Location: Left, Wrist Type of injury: Other (she has a 4 month old child and does most of the carrying with left arm/hand. Also does angel with lot of thumb controls usage. Generally right handed.). No: Fall, Twist Where injury occurred: Home Timing - onset: How many months ago (has had some symptoms for 3 months. Has had thumb spica velcro wrist splint that was helping but still hurting. More hurting the past couple of weeks.) Timing - duration: Months Timing - details: Gradual onset, Still present, Waxing and waning Worsened by: Moving (thumb extension mostly.), Palpating Associated symptoms: No: Weakness, Numbness, Swelling Similar symptoms before: Has not had sx before Recently seen: Emergency Dept (seen for this few weeks ago with splint given, presumed tendonitis.) Review of Systems Skin: denies: Rash, Lesions Neurologic: denies: Focal weakness, Numbness PD PAST MEDICAL HISTORY - Past Medical History Cardiovascular: None Respiratory: Asthma GI: GERD - Past Surgical History Past Surgical History: Yes - Present Medications Home Medications: Ambulatory Orders Medication Instructions Recorded Confirmed Albuterol Sulfate [Albuterol 1 puffs INH Q4HR PRN 11/20/13 03/27/22 Sulfate Hfa] Omeprazole Magnesium 20 mg PO DAILY 06/22/20 03/27/22 Norethindrone 1 tab PO DAILY 03/27/22 03/27/22 Acetaminophen [Acetaminophen Extra 500 mg PO QID PRN #50 tablet 05/28/22 Strength] Meloxicam [Mobic] 7.5 mg PO BID 10 Days #30 tablet 05/28/22 - Allergies Allergies/Adverse Reactions: Allergies Allergy/AdvReac Type Severity Reaction Status Date / Time Antihistamines - Piperidine Allergy Respiratory Verified 05/28/22 14:34 naproxen [From Aleve] AdvReac Itching Verified 05/28/22 14:34 - Social History Does the pt smoke?: No Smoking Status: Never smoker Does the pt drink ETOH?: Yes Does the pt have substance abuse?: No - Immunizations Immunizations are current?: Yes - POLST Patient has POLST: No PD ED PE NORMAL - Vitals Vital signs reviewed: Yes - General General: Alert and oriented X 3, No acute distress, Well developed/nourished - Derm Derm: Normal color, Warm and dry - Extremities Extremities: Other (left thumb base with tenderness ) - Neuro Neuro: No motor deficit, No sensory deficit Results - Vitals Vitals: Vital Signs - 24 hr 05/28/22 14:32 Temperature 36.8 C Heart Rate 71 Respiratory 20 Rate Blood Pressure 116/61 O2 Saturation 98 Oxygen O2 Source Room air PD Medical Decision Making - ED course Complexity details: reviewed old records (prior visit records reviewed. ), considered differential (it does seem like tendonitis of EPL. Has been using splint but no meds. Offered steroid injection but she will wait and try nsaIDs regularly first. To follow up with Ortho. ), d/w patient Departure - Departure Disposition: 01 Home, Self Care Clinical Impression: De Quervain's syndrome (tenosynovitis) Condition: Stable Record reviewed to determine appropriate education?: Yes Instructions: De Quervain Tenosynovitis Tx, ED De Quervain Tenosynovitis Follow-Up: Orthopedic Care [Provider Group] Prescriptions: Acetaminophen [Acetaminophen Extra Strength] 500 mg PO QID PRN #50 tablet PRN Reason: Pain Meloxicam [Mobic] 7.5 mg PO BID 10 Days #30 tablet Comments: I would continue with the thumb splint that you previously had been given. See if you are able to change hands with carrying her baby so its not always on the left or to use the carry sling or pouch. Also thumb controlled angel can be major irritant for this tendon in particular. Try to reduce that. I would suggest adding a regular anti-inflammatories. Meloxicam twice daily for the next couple of weeks. Add Tylenol 4 times daily as needed for pains. Gentle stretching of the area so does not get stiff. Call Monday to the orthopedic office and set a follow-up appointment for about 1-1/2 to 2 weeks. This will give an opportunity that if its not getting better you have arrangement for a follow-up. They could potentially do the next steps beyond which would be some formal therapy for the area or in particular a steroid injection through the tendon sheath. [facility]. Discharge Date/Time: 05/28/22 15:20
[2022-05-28] MEDS ORDERED: IBUPROFEN 600 MG TABLET PO STA (14:53)
[2022-05-28] MEDS ORDERED: ACETAMINOPHEN 325 MG TABLET PO STA (14:53)
== END 2022-05-28 15:20 | disposition home or self-care (01) ==
LOC: ED 14:11
DX: E34.51 Complete androgen insensitivity syndrome (principal)
CPT/HCPCS: 99282; 99283; A9270

== ENCOUNTER 2022-07-01 19:37 | Emergency (ER) | payer MEDICAID ==
--- NOTE | 2022-07-01 20:21 | ED Physician Documentation ---
PD HPI FEMALE - Stated complaint Stated Complaint: FEMALE - Chief complaint Chief Complaint: Abd Pain - History obtained from History obtained from: Patient - Additional information Additional information: Patient is a 22-year-old female presenting for evaluation of heavy vaginal bleeding for the past 2 days. Patient had an uncomplicated vaginal delivery in January. She has been on a Twirla patch for control since her delivery and reports usually having periods at the end of the month. She states she is approximately 16 days early. She was wearing a patch when this episode of ble eding started yesterday. She used approximately 3 pads yesterday and 5 today. She reports passing small clots. She reports that this feels heavier than her usual periods and she has had more cramping.She did take a home test which was negative.She denies feeling dizzy, lightheaded, having chest pain or shortness of breath. She denies dysuria or concerns for sexually transmitted infections. Review of Systems Constitutional: denies: Fever Cardiac: denies: Chest pain / pressure Respiratory: denies: Dyspnea GI: denies: Abdominal Pain, Vomiting : reports: Vaginal bleeding. denies: Dysuria, Discharge Musculoskeletal: denies: Back pain Neurologic: denies: Headache PD PAST MEDICAL HISTORY - Past Medical History Cardiovascular: None Respiratory: Asthma GI: GERD - Past Surgical History Past Surgical History: Yes - Present Medications Home Medications: Ambulatory Orders Medication Instructions Recorded Confirmed Albuterol Sulfate [Albuterol 1 puffs INH Q4HR PRN 11/20/13 03/27/22 Sulfate Hfa] Omeprazole Magnesium 20 mg PO DAILY 06/22/20 03/27/22 Norethindrone 1 tab PO DAILY 03/27/22 03/27/22 Acetaminophen [Acetaminophen Extra 500 mg PO QID PRN #50 tablet 05/28/22 Strength] Meloxicam [Mobic] 7.5 mg PO BID 10 Days #30 tablet 05/28/22 - Allergies Allergies/Adverse Reactions: Allergies Allergy/AdvReac Type Severity Reaction Status Date / Time Antihistamines - Piperidine Allergy Respiratory Verified 07/01/22 19:44 naproxen [From Aleve] AdvReac Itching Verified 07/01/22 19:44 - Social History Does the pt smoke?: No Smoking Status: Never smoker Does the pt drink ETOH?: Yes Does the pt have substance abuse?: No - Immunizations Immunizations are current?: Yes - POLST Patient has POLST: No PD ED PE NORMAL - General General: Alert and oriented X 3, No acute distress, Well developed/nourished - HEENT HEENT: Atraumatic - Neck Neck: Supple, no meningeal sign - Cardiac Cardiac: RRR, No murmur - Respiratory Respiratory: No respiratory distress, Clear bilaterally - Abdomen Abdomen: Soft, Non tender, Non distended - Female 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1 Lymph # (Auto) 3.1 Custer # (Auto) 0.5 Eos # (Auto) 0.2 Baso # (Auto) 0.1 Absolute Nucleated RBC 0.00 Nucleated RBC % 0.0 Sodium 140 Potassium 4.0 Chloride 105 Carbon Dioxide 26 Anion Gap 9.0 BUN 9 Creatinine 0.8 Estimated GFR (MDRD) 91 Glucose 89 Calcium 8.9 HCG, Quant Blood Type O POSITIVE Antibody Screen NEGATIVE 07/01/22 20:20 WBC RBC Hgb Hct MCV MCH MCHC RDW Plt Count MPV Neut # (Auto) Lymph # (Auto) Custer # (Auto) Eos # (Auto) Baso # (Auto) Absolute Nucleated RBC Nucleated RBC % Sodium Potassium Chloride Carbon Dioxide Anion Gap BUN Creatinine Estimated GFR (MDRD) Glucose Calcium HCG, Quant 0.61 Blood Type Antibody Screen PD Medical Decision Making - ED course Complexity details: reviewed results, re-evaluated patient, d/w patient ED course: Patient is a 22-year-old presenting for evaluation of vaginal bleeding. Her abdominal exam is benign. Her pelvic exam shows a small amount of blood but no tenderness. No symptoms to suggest ovarian torsion or TOA. Her test is negative. CBC and chemistries were also reviewed and unremarkable. She has not had much bleeding here.Discussed continued supportive care as well as need for follow-up with her PCP who prescribes her control. Patient is advised on concerning symptoms to return for. Departure - Departure Disposition: 01 Home, Self Care Clinical Impression: Vaginal bleeding Condition: Stable Instructions: ED Bleed Irregular Vaginal Comments: Your test is negative and your hemoglobin levels appear stable.Please continue to monitor your bleeding.If you are bleeding more than a pad an hour for several hours, have any significant pain, feel dizzy, lightheaded or short of breath or have any new concerns please return to the emergency department. Otherwise would recommend close follow-up with the provider Managing your control in the next week. Discharge Date/Time: 07/01/22 21:06
[2022-07-01 20:27] LABS: BASOPHILS # (AUTO) 0.1 10^3/uL (0.0-0.1); BASOPHILS % (AUTO) 0.8 %; EOSINOPHILS # (AUTO) 0.2 10^3/uL (0.0-0.7); EOSINOPHILS % (AUTO) 2.4 %; HCT - HEMATOCRIT 45.1 % (37.0-47.0); HGB - HEMOGLOBIN 14.6 g/dL (12.0-16.0); LYMPHOCYTES # (AUTO) 3.1 10^3/uL (1.5-3.5); LYMPHOCYTES % (AUTO) 39.2 %; MEAN CORPUSCULAR HEMOGLOBIN 27.2 pg (27.0-31.0); MEAN CORPUSCULAR HGB CONC 32.4 g/dL (32.0-36.0); MEAN CORPUSCULAR VOLUME 84.1 fL (81.0-99.0); MEAN PLATELET VOLUME 9.6 fL (7.9-10.8); MONOCYTES # (AUTO) 0.5 10^3/uL (0.0-1.0); MONOCYTES % (AUTO) 6.8 %; NEUTROPHILS # (AUTO) 4.1 10^3/uL (1.5-6.6); NEUTROPHILS % (AUTO) 50.7 %; PLT - PLATELET COUNT 369 10^3/uL (130-450); RED BLOOD COUNT 5.36 10^6/uL (4.20-5.40); RED CELL DISTRIBUTION WIDTH 13.1 % (12.0-15.0)
[2022-07-01 20:39] LABS: CALCIUM 8.9 mg/dL (8.5-10.3); CREATININE 0.8 mg/dL (0.4-1.0)
[2022-07-01 21:06] VITALS: BP 98/59
[2022-07-02 00:12] LABS: CHLAMYDIA TRACHOMATIS DNA NEGATIVE (NEGATIVE); NEISSERIA GONORRHOEAE DNA NEGATIVE (NEGATIVE); TRICHOMONAS VAGINALIS DNA NEGATIVE (NEGATIVE)
== END 2022-07-01 21:06 | disposition home or self-care (01) ==
LOC: ED 19:37
DX: N93.9 Abnormal uterine and vaginal bleeding, unspecified (principal)
CPT/HCPCS: 36415; 80048; 84702; 85025; 86850; 86900; 86901; 87491; 87591; 87661; 99283

== ENCOUNTER 2022-09-22 09:56 | Emergency (ER) | payer MEDICAID ==
[2022-09-22 10:36] LABS: BASOPHILS # (AUTO) 0.1 10^3/uL (0.0-0.1); BASOPHILS % (AUTO) 0.6 %; EOSINOPHILS % (AUTO) 0.5 %; HGB - HEMOGLOBIN 13.9 g/dL (12.0-16.0); LYMPHOCYTES % (AUTO) 25.4 %; MEAN CORPUSCULAR HEMOGLOBIN 27.5 pg (27.0-31.0); MEAN CORPUSCULAR HGB CONC 33.1 g/dL (32.0-36.0); MONOCYTES # (AUTO) 0.6 10^3/uL (0.0-1.0); MONOCYTES % (AUTO) 7.6 %; NEUTROPHILS # (AUTO) 5.1 10^3/uL (1.5-6.6); NEUTROPHILS % (AUTO) 65.6 %; PLT - PLATELET COUNT 384 10^3/uL (130-450); RED BLOOD COUNT 5.06 10^6/uL (4.20-5.40); RED CELL DISTRIBUTION WIDTH 13.5 % (12.0-15.0); WHITE BLOOD COUNT 7.8 x10^3/uL (4.8-10.8)
[2022-09-22 10:51] LABS: ALBUMIN 3.3 g/dL (3.2-5.5); ALBUMIN/GLOBULIN RATIO 0.8 (1.0-2.2); BILIRUBIN,TOTAL 0.3 mg/dL (0.2-1.0); CALCIUM 8.7 mg/dL (8.5-10.3); CREATININE 0.6 mg/dL (0.4-1.0); POTASSIUM 3.8 mmol/L (3.5-5.0); TOTAL PROTEIN 7.3 g/dL (6.7-8.2)
--- OUTSIDE RECORDS SUMMARY | 2022-09-22 11:01 | EXTERNAL MEDICAL SUMMARY RPT | Continuity of Care Document ---
Author Name Unknown Address [address] [place] [address] Phone Organization [place] Address [address] [place] [address] Phone Care Team Providers Care Data Architect Manager Name Role Phone James Sutherland Unavailable Unavailable Allergies and Intolerances date description facility type (no date) naproxen [facility] (unknown) Medications date description facility 2022-08-19 00:00 Nitrofurantoin Monohyd/M-Cryst [facility] Problems date description facility 2022-08-19 00:00 Urinary tract infection [facility] 2022-08-19 00:00 Abdominal cramps [facility] l Results/Labs test date author facility value unit interpretation Result panel 1 (unknown) (no date) (unknown) [facility] (no value) (units unknown) (unknown) Result panel 2 (unknown) (no date) (unknown) [facility] (no value) (units unknown) (unknown) Result panel 3 (unknown) (no date) (unknown) [facility] (no value) (units unknown) (unknown) Result panel 4 (unknown) (no date) (unknown) [facility] (no value) (units unknown) (unknown) Result panel 5 (unknown) (no date) (unknown) [facility] (no value) (units unknown) (unknown) Result panel 6 (unknown) (no date) (unknown) [facility] (no value) (units unknown) (unknown) Result panel 7 (unknown) (no date) (unknown) [facility] (no value) (units unknown) (unknown) Result panel 8 (unknown) (no date) (unknown) [facility] (no value) (units unknown) (unknown) Result panel 9 (unknown) (no date) (unknown) [facility] (no value) (units unknown) (unknown) Result panel 10 (unknown) (no date) (unknown) [facility] (no value) (units unknown) (unknown) Result panel 11 (unknown) (no date) (unknown) [facility] (no value) (units unknown) (unknown) Result panel 12 (unknown) (no date) (unknown) [facility] (no value) (units unknown) (unknown) Result panel 13 (unknown) (no date) (unknown) [facility] (no value) (units unknown) (unknown) Result panel 14 (unknown) (no date) (unknown) [facility] (no value) (units unknown) (unknown) Result panel 15 (unknown) (no date) (unknown) [facility] (no value) (units unknown) (unknown) Result panel 16 (unknown) (no date) (unknown) [facility] (no value) (units unknown) (unknown) Result panel 17 (unknown) (no date) (unknown) [facility] (no value) (units unknown) (unknown) Result panel 18 (unknown) (no date) (unknown) [facility] (no value) (units unknown) (unknown) Result panel 19 (unknown) (no date) (unknown) [facility] (no value) (units unknown) (unknown) Result panel 20 (unknown) (no date) (unknown) [facility] (no value) (units unknown) (unknown) Result panel 21 (unknown) (no date) (unknown) [facility] (no value) (units unknown) (unknown) Result panel 22 (unknown) (no date) (unknown) [facility] (no value) (units unknown) (unknown) Result panel 23 (unknown) (no date) (unknown) [facility] (no value) (units unknown) (unknown) Result panel 24 (unknown) (no date) (unknown) [facility] (no value) (units unknown) (unknown) Result panel 25 (unknown) (no date) (unknown) [facility] (no value) (units unknown) (unknown) Result panel 26 (unknown) (no date) (unknown) [facility] (no value) (units unknown) (unknown) Result panel 27 (unknown) (no date) (unknown) [facility] (no value) (units unknown) (unknown) Result panel 28 (unknown) (no date) (unknown) [facility] (no value) (units unknown) (unknown) Result panel 29 (unknown) (no date) (unknown) [facility] (no value) (units unknown) (unknown) Result panel 30 (unknown) (no date) (unknown) [facility] (no value) (units unknown) (unknown) Result panel 31 (unknown) (no date) (unknown) [facility] (no value) (units unknown) (unknown) Result panel 32 (unknown) (no date) (unknown) [facility] (no value) (units unknown) (unknown) Result panel 33 (unknown) (no date) (unknown) [facility] (no value) (units unknown) (unknown) Result panel 34 (unknown) (no date) (unknown) [facility] (no value) (units unknown) (unknown) Result panel 35 (unknown) (no date) (unknown) [facility] (no value) (units unknown) (unknown) Result panel 36 (unknown) (no date) (unknown) [facility] (no value) (units unknown) (unknown) Result panel 37 (unknown) (no date) (unknown) [facility] (no value) (units unknown) (unknown) Result panel 38 (unknown) (no date) (unknown) [facility] (no value) (units unknown) (unknown) Result panel 39 (unknown) (no date) (unknown) [facility] (no value) (units unknown) (unknown) Result panel 40 (unknown) (no date) (unknown) [facility] (no value) (units unknown) (unknown) Result panel 41 (unknown) (no date) (unknown) [facility] (no value) (units unknown) (unknown) Result panel 42 (unknown) (no date) (unknown) [facility] (no value) (units unknown) (unknown) Result panel 43 (unknown) (no date) (unknown) [facility] (no value) (units unknown) (unknown) Result panel 44 (unknown) (no date) (unknown) [facility] (no value) (units unknown) (unknown) Result panel 45 (unknown) (no date) (unknown) [facility] (no value) (units unknown) (unknown) Result panel 46 (unknown) (no date) (unknown) [facility] (no value) (units unknown) (unknown) Result panel 47 (unknown) (no date) (unknown) [facility] (no value) (units unknown) (unknown) Result panel 48 (unknown) (no date) (unknown) [facility] (no value) (units unknown) (unknown) Result panel 49 (unknown) (no date) (unknown) [facility] (no value) (units unknown) (unknown) Result panel 50 (unknown) (no date) (unknown) [facility] (no value) (units unknown) (unknown) Result panel 51 (unknown) (no date) (unknown) [facility] (no value) (units unknown) (unknown) Result panel 52 (unknown) (no date) (unknown) [facility] (no value) (units unknown) (unknown) Result panel 53 (unknown) (no date) (unknown) [facility] (no value) (units unknown) (unknown) Result panel 54 (unknown) (no date) (unknown) [facility] (no value) (units unknown) (unknown) Result panel 55 (unknown) (no date) (unknown) [facility] (no value) (units unknown) (unknown) Result panel 56 (unknown) (no date) (unknown) [facility] (no value) (units unknown) (unknown) Result panel 57 (unknown) (no date) (unknown) [facility] (no value) (units unknown) (unknown) Result panel 58 (unknown) (no date) (unknown) [facility] (no value) (units unknown) (unknown) Result panel 59 (unknown) (no date) (unknown) [facility] (no value) (units unknown) (unknown) Result panel 60 (unknown) (no date) (unknown) [facility] (no value) (units unknown) (unknown) Result panel 61 (unknown) (no date) (unknown) [facility] (no value) (units unknown) (unknown) Result panel 62 (unknown) (no date) (unknown) [facility] (no value) (units unknown) (unknown) Result panel 63 (unknown) (no date) (unknown) [facility] (no value) (units unknown) (unknown) Result panel 64 (unknown) (no date) (unknown) [facility] (no value) (units unknown) (unknown) Result panel 65 (unknown) (no date) (unknown) [facility] (no value) (units unknown) (unknown) Result panel 66 (unknown) (no date) (unknown) [facility] (no value) (units unknown) (unknown) Result panel 67 (unknown) (no date) (unknown) [facility] (no value) (units unknown) (unknown) Result panel 68 (unknown) (no date) (unknown) [facility] (no value) (units unknown) (unknown) Result panel 69 (unknown) (no date) (unknown) [facility] (no value) (units unknown) (unknown) Result panel 70 (unknown) (no date) (unknown) [facility] (no value) (units unknown) (unknown) Result panel 71 (unknown) (no date) (unknown) [facility] (no value) (units unknown) (unknown) Result panel 72 (unknown) (no date) (unknown) [facility] (no value) (units unknown) (unknown) Result panel 73 (unknown) (no date) (unknown) (unknown) (no value) (units unknown) (unknown) (unknown) (no date) (unknown) (unknown) 08/19/22 (units unknown) (unknown) (unknown) (no date) (unknown) (unknown) [id number] (units unknown) (unknown) (unknown) (no date) (unknown) (unknown) Age/Sex: / Date of Service: (units unknown) (unknown) (unknown) (no date) (unknown) (unknown) [facility] (units unknown) (unknown) (unknown) (no date) (unknown) (unknown) [place] [id number] (units unknown) (unknown) (unknown) (no date) (unknown) (unknown) Attending Dr: Dodie Hess P.A-C (units unknown) (unknown) (unknown) (no date) (unknown) (unknown) : 1 Acct:[id number] (units unknown) (unknown) (unknown) (no date) (unknown) (unknown) Dept at . (units unknown) (unknown) (unknown) (no date) (unknown) (unknown) Documented By: Dodie Hess 08/19/22 1844 (units unknown) (unknown) (unknown) (no date) (unknown) (unknown) Draft (units unknown) (unknown) (unknown) (no date) (unknown) (unknown) Intake Note: (units unknown) (unknown) (unknown) (no date) (unknown) (unknown) Intake perform ed by: Mally Camara (units unknown) (unknown) (unknown) (no date) (unknown) (unknown) Intake (units unknown) (unknown) (unknown) (no date) (unknown) (unknown) Intake- [place] Staff (units unknown) (unknown) (unknown) (no date) (unknown) (unknown) Loc: [facility] (units unknown) (unknown) (unknown) (no date) (unknown) (unknown) Nurse Office Visit ( units unknown) (unknown) (unknown) (no date) (unknown) (unknown) Patient presen ts to [facility] With concerns for (units unknown) (unknown) (unknown) (no date) (unknown) (unknown) Patient: Rajiv Nash MR#: [id number] (units unknown) (unknown) (unknown) (no date) (unknown) (unknown) Reason For Visit (un its unknown) (unknown) (unknown) (no date) (unknown) (unknown) Signed By: (units unknown) (unknown) (unknown) (no date) (unknown) (unknown) This note may have been all or partially generated using voice recognition (units unknown) (unknown) (unknown) (no date) (unknown) (unknown) 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 If there are any questions, please contact the Medical Records (units unknown) (unknown) (unknown) (no date) (unknown) (unknown) may occur. Occasional wrong-word or 'sound-alike' substitutions may have (units unknown) (unknown) (unknown) (no date) (unknown) (unknown) occurred due t o the inherent limitations of voice recognition software. Please (units unknown) (unknown) (unknown) (no date) (unknown) (unknown) read the note carefully and recognize, using context, where these substitutions (units unknown) (unknown) (unknown) (no date) (unknown) (unknown) software. Alth ough every effort is made to edit content, logistics team lead errors (units unknown) (unknown) Result panel 74 (unknown) (no date) (unknown) (unknown) (no value) (units unknown) (unknown) (unknown) (no date) (unknown) (unknown) 08/19/22 (units unknown) (unknown) (unknown) (no date) (unknown) (unknown) [id number] (units unknown) (unknown) (unknown) (no date) (unknown) (unknown) Age/Sex: 22 / F Date of Service: (units unknown) (unknown) (unknown) (no date) (unknown) (unknown) [facility] (units unknown) (unknown) (unknown) (no date) (unknown) (unknown) [place] [id number] (units unknown) (unknown) (unknown) (no date) (unknown) (unknown) Attending Dr: Dodie Hess P.A-C (units unknown) (unknown) (unknown) (no date) (unknown) (unknown) : 1 Acct:[id number] (units unknown) (unknown) (unknown) (no date) (unknown) (unknown) Dept at . (units unknown) (unknown) (unknown) (no date) (unknown) (unknown) Documented By: Dodie Hess 08/19/22 1844 (units unknown) (unknown) (unknown) (no date) (unknown) (unknown) Draft (units unknown) (unknown) (unknown) (no date) (unknown) (unknown) Intake Note: (units unknown) (unknown) (unknown) (no date) (unknown) (unknown) Intake perform ed by: Mally Camara (units unknown) (unknown) (unknown) (no date) (unknown) (unknown) Intake (units unknown) (unknown) (unknown) (no date) (unknown) (unknown) Intake- Desire barfield Staff (units unknown) (unknown) (unknown) (no date) (unknown) (unknown) Loc: [facility] (units unknown) (unknown) (unknown) (no date) (unknown) (unknown) Nurse Office Visit ( units unknown) (unknown) (unknown) (no date) (unknown) (unknown) Patient presen ts to [facility] With concerns for worsening abdominal pain. 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 If there are any questions, please contact the Medical Records (units unknown) (unknown) (unknown) (no date) (unknown) (unknown) may occur. Occasional wrong-word or 'sound-alike' substitutions may have (units unknown) (unknown) (unknown) (no date) (unknown) (unknown) occurred due t o the inherent limitations of voice recognition software. Please (units unknown) (unknown) (unknown) (no date) (unknown) (unknown) read the note carefully and recognize, using context, where these substitutions (units unknown) (unknown) (unknown) (no date) (unknown) (unknown) software. Alth ough every effort is made to edit content, logistics team lead errors (units unknown) (unknown) (unknown) (no date) (unknown) (unknown) states that (units unknown) (unknown) Result panel 75 (unknown) (no date) (unknown) (unknown) (no value) (units unknown) (unknown) (unknown) (no date) (unknown) (unknown) 08/19/22 (units unknown) (unknown) (unknown) (no date) (unknown) (unknown) [id number] (units unknown) (unknown) (unknown) (no date) (unknown) (unknown) Age/Sex: 22 / F Date of Service: (units unknown) (unknown) (unknown) (no date) (unknown) (unknown) [facility] (units unknown) (unknown) (unknown) (no date) (unknown) (unknown) [place] [id number] (units unknown) (unknown) (unknown) (no date) (unknown) (unknown) Attending Dr: Dodie Hess P.A-C (units unknown) (unknown) (unknown) (no date) (unknown) (unknown) : 1 Acct:[id number] (units unknown) (unknown) (unknown) (no date) (unknown) (unknown) Dept at . (units unknown) (unknown) (unknown) (no date) (unknown) (unknown) Documented By: Dodie Hess 08/19/22 1844 (units unknown) (unknown) (unknown) (no date) (unknown) (unknown) Draft (units unknown) (unknown) (unknown) (no date) (unknown) (unknown) Health 'but th ey didn't really do anything'. Patient was provided education (units unknown) (unknown) (unknown) (no date) (unknown) (unknown) Intake Note: (units unknown) (unknown) (unknown) (no date) (unknown) (unknown) Intake perform ed by: Mally Camara (units unknown) (unknown) (unknown) (no date) (unknown) (unknown) Intake (units unknown) (unknown) (unknown) (no date) (unknown) (unknown) Intake- Desire [place] Staff (units unknown) (unknown) (unknown) (no date) (unknown) (unknown) Loc: [facility] (units unknown) (unknown) (unknown) (no date) (unknown) (unknown) Nurse Office Visit ( units unknown) (unknown) (unknown) (no date) (unknown) (unknown) Patient presen ts to [facility] With concerns for worsening abdominal pain. Patient (units unknown) (unknown) (unknown) (no date) (unknown) (unknown) Patient: Rajiv Nash MR#: [id number] (units unknown) (unknown) (unknown) (no date) (unknown) (unknown) Reason For Visit (un its unknown) (unknown) (unknown) (no date) (unknown) (unknown) She reports sh e does not currently have a PCP, and has been evaluated at [facility] (units unknown) (unknown) (unknown) (no date) (unknown) (unknown) Signed By: (units unknown) (unknown) (unknown) (no date) (unknown) (unknown) This note may have been all or partially generated using voice recognition (units unknown) (unknown) (unknown) (no date) (unknown) (unknown) 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 Pt reports she has had 'severe' (units unknown) (unknown) (unknown) (no date) (unknown) (unknown) have occurred. If there are any questions, please contact the Medical Records (units unknown) (unknown) (unknown) (no date) (unknown) (unknown) her. (units unknown) (unknown) (unknown) (no date) (unknown) (unknown) may occur. Occasional wrong-word or 'sound-alike' substitutions may have (units unknown) (unknown) (unknown) (no date) (unknown) (unknown) menses 3 weeks ago. She denies any prior dx of endometriosis or ovarian cysts. (units unknown) (unknown) (unknown) (no date) (unknown) (unknown) occurred due t o the inherent limitations of voice recognition software. Please (units unknown) (unknown) (unknown) (no date) (unknown) (unknown) of education, and declined evaluation by [facility] provider at this time. She states (units unknown) (unknown) (unknown) (no date) (unknown) (unknown) provider with understanding that she may be advised to seek evaluation in ED due (units unknown) (unknown) (unknown) (no date) (unknown) (unknown) read the note carefully and recognize, using context, where these substitutions (units unknown) (unknown) (unknown) (no date) (unknown) (unknown) regarding diag nostic limitations of the [facility]. She was offered evaluation by [facility] (units unknown) (unknown) (unknown) (no date) (unknown) (unknown) she will go to the ED. Declined nurse escort, states her boyfriend will take (units unknown) (unknown) (unknown) (no date) (unknown) (unknown) software. Alth ough every effort is made to edit content, logistics team lead errors (units unknown) (unknown) (unknown) (no date) (unknown) (unknown) states that sh e has had intermittent abdominal pain for several months. She (units unknown) (unknown) (unknown) (no date) (unknown) (unknown) states that th e pain is generalized across her abdomen on left and right sides, (units unknown) (unknown) (unknown) (no date) (unknown) (unknown) stomach cramps and vomiting today. She denies fever. Denies constipation, last (units unknown) (unknown) (unknown) (no date) (unknown) (unknown) to her level o f reported pain and vomiting. Patient acknowledged understanding (units unknown) (unknown) Result panel 76 (unknown) (no date) (unknown) (unknown) 0-1 /HPF (units unknown) (unknown) (unknown) (no date) (unknown) (unknown) 1-5/HPF (units unknown) (unknown) (unknown) (no date) (unknown) (unknown) 1-5/HPF (units unknown) (unknown) (unknown) (no date) (unknown) (unknown) 10-30/HPF (units unknown) (unknown) (unknown) (no date) (unknown) (unknown) Occasional (0-1) (un its unknown) (unknown) (unknown) (no date) (unknown) (unknown) Specimen Cultured (u nits unknown) (unknown) Result panel 77 (unknown) (no date) (unknown) (unknown) 0 /ul (unknown ) (unknown) (no date) (unknown) (unknown) 0 /ul (unknown ) (unknown) (no date) (unknown) (unknown) 0.2 % (unknown ) (unknown) (no date) (unknown) (unknown) 0.3 % (unknown ) (unknown) (no date) (unknown) (unknown) 1200 /ul (unknown ) (unknown) (no date) (unknown) (unknown) 14.2 % (unknown ) (unknown) (no date) (unknown) (unknown) 14.7 g/dl (unknown ) (unknown) (no date) (unknown) (unknown) 15.9 % (unknown ) (unknown) (no date) (unknown) (unknown) 27.6 pg (unknown ) (unknown) (no date) (unknown) (unknown) 34.0 % (unknown ) (unknown) (no date) (unknown) (unknown) 350 x10 3/ul (unknow n) (unknown) (no date) (unknown) (unknown) 43.1 % (unknown ) (unknown) (no date) (unknown) (unknown) 5.32 x10 6/ul (unknow n) (unknown) (no date) (unknown) (unknown) 5800 /ul (unknown ) (unknown) (no date) (unknown) (unknown) 7.8 x10 3/ul (unknow n) (unknown) (no date) (unknown) (unknown) 700 /ul (unknown ) (unknown) (no date) (unknown) (unknown) 74.3 % (unknown ) (unknown) (no date) (unknown) (unknown) 81.0 fl (unknown ) (unknown) (no date) (unknown) (unknown) 9.3 % (unknown ) Result panel 78 (unknown) (no date) (unknown) (unknown) > 60 ml/min (unknown ) (unknown) (no date) (unknown) (unknown) > 60 ml/min (unknown ) (unknown) (no date) (unknown) (unknown) 0.5 mg/dl (unknown ) (unknown) (no date) (unknown) (unknown) 0.71 mg/dl (unknown ) (unknown) (no date) (unknown) (unknown) 1.1 (units unknown) (unknown) (unknown) (no date) (unknown) (unknown) 101 mmol/l (unknown ) (unknown) (no date) (unknown) (unknown) 134 mmol/l (unknown ) (unknown) (no date) (unknown) (unknown) 24 iu/l (unknown ) (unknown) (no date) (unknown) (unknown) 25 iu/l (unknown ) (unknown) (no date) (unknown) (unknown) 26 mmol/l (unknown ) (unknown) (no date) (unknown) (unknown) 3.7 g/dl (unknown ) (unknown) (no date) (unknown) (unknown) 3.8 mmol/l (unknown ) (unknown) (no date) (unknown) (unknown) 4.1 g/dl (unknown ) (unknown) (no date) (unknown) (unknown) 40 u/l (unknown ) (unknown) (no date) (unknown) (unknown) 7 mg/dl (unknown ) (unknown) (no date) (unknown) (unknown) 7.8 g/dl (unknown ) (unknown) (no date) (unknown) (unknown) 8.8 mg/dl (unknown ) (unknown) (no date) (unknown) (unknown) 9.9 (units unknown) (unknown) (unknown) (no date) (unknown) (unknown) 96 u/l (unknown ) (unknown) (no date) (unknown) (unknown) 98 mg/dl (unknown ) (unknown) (no date) (unknown) (unknown) 98 mg/dl (unknown ) Result panel 79 (unknown) (no date) (unknown) (unknown) (no value) (units unknown) (unknown) (unknown) (no date) (unknown) (unknown) 08/19/2208/1908/19/22 Range/Units (units unknown) (unknown) (unknown) (no date) (unknown) (unknown) 08/19/22 19:35 (unit s unknown) (unknown) (unknown) (no date) (unknown) (unknown) 08/19/22 19:40 (unit s unknown) (unknown) (unknown) (no date) (unknown) (unknown) 08/19/22 (units unknown) (unknown) (unknown) (no date) (unknown) (unknown) 19:23 (units unknown) (unknown) (unknown) (no date) (unknown) (unknown) 19:35 19:40 19:40 (u nits unknown) (unknown) (unknown) (no date) (unknown) (unknown) [id number] (units unknown) (unknown) (unknown) (no date) (unknown) (unknown) ALT 24 (<35) IU/L (u nits unknown) (unknown) (unknown) (no date) (unknown) (unknown) AST 25 (14-36) IU/L (units unknown) (unknown) (unknown) (no date) (unknown) (unknown) Age/Sex: 22 / F (uni ts unknown) (unknown) (unknown) (no date) (unknown) (unknown) Albumin 4.1 (3.5-5.0) g/dL (units unknown) (unknown) (unknown) (no date) (unknown) (unknown) Albumin/Globul in Ratio 1.1 (1.0-2.8) (units unknown) (unknown) (unknown) (no date) (unknown) (unknown) Alkaline Phosp hatase 96 (38-126) U/L (units unknown) (unknown) (unknown) (no date) (unknown) (unknown) Allergies (units unknown) (unknown) (unknown) (no date) (unknown) (unknown) Allergy/AdvRea c Type Severity Reaction Status Date / Time (units unknown) (unknown) (unknown) (no date) (unknown) (unknown) BUN 7 (7-17) mg/dL ( units unknown) (unknown) (unknown) (no date) (unknown) (unknown) BUN/Creatinine Ratio 9.9 (6-22) (units unknown) (unknown) (unknown) (no date) (unknown) (unknown) Baso # (Auto) 0 (0-100) /uL (units unknown) (unknown) (unknown) (no date) (unknown) (unknown) Baso % (Auto) 0.2 (0-2) % (units unknown) (unknown) (unknown) (no date) (unknown) (unknown) Bedside Urine Bilirubin - Negative (units unknown) (unknown) (unknown) (no date) (unknown) (unknown) Bedside Urine Glucose Negative (units unknown) (unknown) (unknown) (no date) (unknown) (unknown) Bedside Urine Ketone - Negative (units unknown) (unknown) (unknown) (no date) (unknown) (unknown) Bedside Urine Leukocytes +++ 500 (units unknown) (unknown) (unknown) (no date) (unknown) (unknown) Bedside Urine Nitrite - Negative (units unknown) (unknown) (unknown) (no date) (unknown) (unknown) Bedside Urine Occult Blood - Negative (units unknown) (unknown) (unknown) (no date) (unknown) (unknown) Bedside Urine Protein - Negative (units unknown) (unknown) (unknown) (no date) (unknown) (unknown) Bedside Urine Urobilinogen - Negative (units unknown) (unknown) (unknown) (no date) (unknown) (unknown) Bedside Urine pH 7 ( units unknown) (unknown) (unknown) (no date) (unknown) (unknown) Blood Pressure 107/64 08/19/22 19:23 (units unknown) (unknown) (unknown) (no date) (unknown) (unknown) Blood Pressure 107/64 (units unknown) (unknown) (unknown) (no date) (unknown) (unknown) Calcium 8.8 (8.4-10.2) mg/dL (units unknown) (unknown) (unknown) (no date) (unknown) (unknown) Carbon Dioxide 26 (22-32) mmol/L (units unknown) (unknown) (unknown) (no date) (unknown) (unknown) Chief complain t: Abdominal Pain (units unknown) (unknown) (unknown) (no date) (unknown) (unknown) Chloride 101 (98-107) mmol/L (units unknown) (unknown) (unknown) (no date) (unknown) (unknown) Complete Blood Count AUTO DIFF Stat (units unknown) (unknown) (unknown) (no date) (unknown) (unknown) Comprehensive Metabolic Panel Stat (units unknown) (unknown) (unknown) (no date) (unknown) (unknown) Course (units unknown) (unknown) (unknown) (no date) (unknown) (unknown) Creatinine 0.7 1 (0.52-1.04) mg/dL (units unknown) (unknown) (unknown) (no date) (unknown) (unknown) : 1 Acct:[id number] (units unknown) (unknown) (unknown) (no date) (unknown) (unknown) Date of Servic e: 08/19/22 (units unknown) (unknown) (unknown) (no date) (unknown) (unknown) Departure (units unknown) (unknown) (unknown) (no date) (unknown) (unknown) Discharge Plan (unit s unknown) (unknown) (unknown) (no date) (unknown) (unknown) Documented By: PAWAN (u nits unknown) (unknown) (unknown) (no date) (unknown) (unknown) ED Orders (units unknown) (unknown) (unknown) (no date) (unknown) (unknown) ER Physician: James Sutherland D.O. (units unknown) (unknown) (unknown) (no date) (unknown) (unknown) Emergency Report (un its unknown) (unknown) (unknown) (no date) (unknown) (unknown) Eos # (Auto) 0 (0-450) /uL (units unknown) (unknown) (unknown) (no date) (unknown) (unknown) Eos % (Auto) 0 .3 L (2-4) % (units unknown) (unknown) (unknown) (no date) (unknown) (unknown) Esterase (units unknown) (unknown) (unknown) (no date) (unknown) (unknown) Estimated GFR > 60 (>60) mL/min (units unknown) (unknown) (unknown) (no date) (unknown) (unknown) Exam (units unknown) (unknown) (unknown) (no date) (unknown) (unknown) General (units unknown) (unknown) (unknown) (no date) (unknown) (unknown) Globulin 3.7 (1.7-4.1) g/dL (units unknown) (unknown) (unknown) (no date) (unknown) (unknown) Glucose 98 (70 -100) mg/dL (units unknown) (unknown) (unknown) (no date) (unknown) (unknown) HPI - General Adult (units unknown) (unknown) (unknown) (no date) (unknown) (unknown) Hct 43.1 (36-46) % ( units unknown) (unknown) (unknown) (no date) (unknown) (unknown) Hgb 14.7 (12.0 -16.0) g/dL (units unknown) (unknown) (unknown) (no date) (unknown) (unknown) Initial Vital Signs (units unknown) (unknown) (unknown) (no date) (unknown) (unknown) Initial Vital Signs: (units unknown) (unknown) (unknown) (no date) (unknown) (unknown) [address] [address] (units unknown) (unknown) (unknown) (no date) (unknown) (unknown) Lab Data (units unknown) (unknown) (unknown) (no date) (unknown) (unknown) Lab Results (units unknown) (unknown) (unknown) (no date) (unknown) (unknown) Labs: (units unknown) (unknown) (unknown) (no date) (unknown) (unknown) Last Admin: 19:43 Dose: 4 mg (units unknown) (unknown) (unknown) (no date) (unknown) (unknown) Lipase 40 (23- 300) U/L (units unknown) (unknown) (unknown) (no date) (unknown) (unknown) Lipase Stat (units unknown) (unknown) (unknown) (no date) (unknown) (unknown) Lymph # (Auto) 1200 (9782-5834) /uL (units unknown) (unknown) (unknown) (no date) (unknown) (unknown) Lymph % (Auto) 15.9 L (25-40) % (units unknown) (unknown) (unknown) (no date) (unknown) (unknown) MCH 27.6 (26-34) PG (units unknown) (unknown) (unknown) (no date) (unknown) (unknown) MCHC 34.0 (30-36) % (units unknown) (unknown) (unknown) (no date) (unknown) (unknown) MCV 81.0 (80-100) fL (units unknown) (unknown) (unknown) (no date) (unknown) (unknown) Medical Decisi on Making (units unknown) (unknown) (unknown) (no date) (unknown) (unknown) Miscellaneous, Doctor , MD [Primary Care Provider] (units unknown) (unknown) (unknown) (no date) (unknown) (unknown) Mode of arriva l: Ambulatory (units unknown) (unknown) (unknown) (no date) (unknown) (unknown) [place] # (Auto) 700 (0-900) /uL (units unknown) (unknown) (unknown) (no date) (unknown) (unknown) [place] % (Auto) 9.3 (3-14) % (units unknown) (unknown) (unknown) (no date) (unknown) (unknown) Neut # (Auto) 5800 (8833-2783) /uL (units unknown) (unknown) (unknown) (no date) (unknown) (unknown) Neut % (Auto) 74.3 (50-75) % (units unknown) (unknown) (unknown) (no date) (unknown) (unknown) Ondansetron HC l (Ondansetron 4 Mg Odt) 4 mg PO NOW PRN (units unknown) (unknown) (unknown) (no date) (unknown) (unknown) Ondansetron HC l (Ondansetron 4 Mg/2 Ml Inj) 4 mg IV NOW PRN (units unknown) (unknown) (unknown) (no date) (unknown) (unknown) Ordered: (units unknown) (unknown) (unknown) (no date) (unknown) (unknown) Orders (units unknown) (unknown) (unknown) (no date) (unknown) (unknown) Oxygen Deliver y Method Room Air 08/19/22 19:23 (units unknown) (unknown) (unknown) (no date) (unknown) (unknown) Oxygen Deliver y Method Room Air (units unknown) (unknown) (unknown) (no date) (unknown) (unknown) PRN Reason: Na usea And Vomiting (units unknown) (unknown) (unknown) (no date) (unknown) (unknown) Patient History (uni ts unknown) (unknown) (unknown) (no date) (unknown) (unknown) Patient: Rajiv Nash MR#: [id number] (units unknown) (unknown) (unknown) (no date) (unknown) (unknown) Plt Count 350 (150-400) X103/uL (units unknown) (unknown) (unknown) (no date) (unknown) (unknown) Point of Care Testing (units unknown) (unknown) (unknown) (no date) (unknown) (unknown) Point of care testing: (units unknown) (unknown) (unknown) (no date) (unknown) (unknown) Potassium 3.8 (3.4-5.1) mmol/L (units unknown) (unknown) (unknown) (no date) (unknown) (unknown) Test Results Negative (units unknown) (unknown) (unknown) (no date) (unknown) (unknown) Pulse Oximetry 100 08/19/22 19:23 (units unknown) (unknown) (unknown) (no date) (unknown) (unknown) Pulse Oximetry 100 ( units unknown) (unknown) (unknown) (no date) (unknown) (unknown) Pulse Rate 103 H 08/19/22 19:23 (units unknown) (unknown) (unknown) (no date) (unknown) (unknown) Pulse Rate 103 H (un its unknown) (unknown) (unknown) (no date) (unknown) (unknown) RBC 5.32 H (4. 0-5.2) X106/uL (units unknown) (unknown) (unknown) (no date) (unknown) (unknown) RDW 14.2 (11.6 -14.8) % (units unknown) (unknown) (unknown) (no date) (unknown) (unknown) Referrals: (units unknown) (unknown) (unknown) (no date) (unknown) (unknown) Related Data (units unknown) (unknown) (unknown) (no date) (unknown) (unknown) Respiratory Ra te 18 08/19/22 19:23 (units unknown) (unknown) (unknown) (no date) (unknown) (unknown) Respiratory Rate 18 (units unknown) (unknown) (unknown) (no date) (unknown) (unknown) Signed By: (units unknown) (unknown) (unknown) (no date) (unknown) (unknown) Smoking Status : Never smoker (units unknown) (unknown) (unknown) (no date) (unknown) (unknown) Social History (unit s unknown) (unknown) (unknown) (no date) (unknown) (unknown) Sodium 134 L (137-145) mmol/L (units unknown) (unknown) (unknown) (no date) (unknown) (unknown) Source: patient (uni ts unknown) (unknown) (unknown) (no date) (unknown) (unknown) Stated complai nt: abd pain/vomiting x1 day (units unknown) (unknown) (unknown) (no date) (unknown) (unknown) Substance Use Type: marijuana (units unknown) (unknown) (unknown) (no date) (unknown) (unknown) Temperature 98 .6 F 08/19/22 19:23 (units unknown) (unknown) (unknown) (no date) (unknown) (unknown) Temperature 98.6 F ( units unknown) (unknown) (unknown) (no date) (unknown) (unknown) Time Seen by Provider: 08/19/22 21:40 (units unknown) (unknown) (unknown) (no date) (unknown) (unknown) Total Bilirubi n 0.5 (0.2-1.3) mg/dL (units unknown) (unknown) (unknown) (no date) (unknown) (unknown) Total Protein 7.8 (6.3-8.2) g/dL (units unknown) (unknown) (unknown) (no date) (unknown) (unknown) Ur Culture Indicated? Specimen cultured (units unknown) (unknown) (unknown) (no date) (unknown) (unknown) Ur Squamous Ep ith Cells 0-1 /hpf (0-5/HPF) (units unknown) (unknown) (unknown) (no date) (unknown) (unknown) Urine Bacteria Occasional (0-1) (None) (units unknown) (unknown) (unknown) (no date) (unknown) (unknown) Urine Culture Stat ( units unknown) (unknown) (unknown) (no date) (unknown) (unknown) Urine Dip (units unknown) (unknown) (unknown) (no date) (unknown) (unknown) Urine Microsco pic Stat (units unknown) (unknown) (unknown) (no date) (unknown) (unknown) Urine RBC 1-5/ hpf (0-5/HPF) (units unknown) (unknown) (unknown) (no date) (unknown) (unknown) Urine Specific Neon 1.005 (units unknown) (unknown) (unknown) (no date) (unknown) (unknown) Urine WBC 10-3 0/hpf H (0-5/HPF) (units unknown) (unknown) (unknown) (no date) (unknown) (unknown) Vital Signs - 8 hr ( units unknown) (unknown) (unknown) (no date) (unknown) (unknown) Vital Signs (units unknown) (unknown) (unknown) (no date) (unknown) (unknown) Vital signs: (units unknown) (unknown) (unknown) (no date) (unknown) (unknown) WBC 7.8 (4.5-1 1.0) X103/uL (units unknown) (unknown) (unknown) (no date) (unknown) (unknown) [Embedded Imag e Not Available] (units unknown) (unknown) (unknown) (no date) (unknown) (unknown) alcohol intake frequency: holidays/special occasions only (units unknown) (unknown) (unknown) (no date) (unknown) (unknown) naproxen Aller gy Intermediate ITCHING Verified 08/19/22 19:44 (units unknown) (unknown) Result panel 80 (unknown) (no date) (unknown) (unknown) (no value) (units unknown) (unknown) (unknown) (no date) (unknown) (unknown) <Electronicall y signed by James Sutherland D.O.> (units unknown) (unknown) (unknown) (no date) (unknown) (unknown) 08/19/2208/1908/19/22 Range/Units (units unknown) (unknown) (unknown) (no date) (unknown) (unknown) 08/19/22 19:35 (unit s unknown) (unknown) (unknown) (no date) (unknown) (unknown) 08/19/22 19:40 (unit s unknown) (unknown) (unknown) (no date) (unknown) (unknown) 08/19/22 (units unknown) (unknown) (unknown) (no date) (unknown) (unknown) 08/20/22 0432 (units unknown) (unknown) (unknown) (no date) (unknown) (unknown) 100 mg PO Q12H 5 Days Qty: 10 0RF (units unknown) (unknown) (unknown) (no date) (unknown) (unknown) 19:35 19:40 19:40 (u nits unknown) (unknown) (unknown) (no date) (unknown) (unknown) 22:02 (units unknown) (unknown) (unknown) (no date) (unknown) (unknown) [id number] (units unknown) (unknown) (unknown) (no date) (unknown) (unknown) ALT 24 (<35) IU/L (u nits unknown) (unknown) (unknown) (no date) (unknown) (unknown) AST 25 (14-36) IU/L (units unknown) (unknown) (unknown) (no date) (unknown) (unknown) Abdominal cram ping, Urinary tract infection (units unknown) (unknown) (unknown) (no date) (unknown) (unknown) Activity Restrictions/Additio nal Instructions: (units unknown) (unknown) (unknown) (no date) (unknown) (unknown) Age/Sex: 22 / F (uni ts unknown) (unknown) (unknown) (no date) (unknown) (unknown) Albumin 4.1 (3.5-5.0) g/dL (units unknown) (unknown) (unknown) (no date) (unknown) (unknown) Albumin/Globul in Ratio 1.1 (1.0-2.8) (units unknown) (unknown) (unknown) (no date) (unknown) (unknown) Alkaline Phosp hatase 96 (38-126) U/L (units unknown) (unknown) (unknown) (no date) (unknown) (unknown) Allergies (units unknown) (unknown) (unknown) (no date) (unknown) (unknown) Allergy/AdvRea c Type Severity Reaction Status Date / Time (units unknown) (unknown) (unknown) (no date) (unknown) (unknown) BUN 7 (7-17) mg/dL ( units unknown) (unknown) (unknown) (no date) (unknown) (unknown) BUN/Creatinine Ratio 9.9 (6-22) (units unknown) (unknown) (unknown) (no date) (unknown) (unknown) Back/Spine/Pelvis (u nits unknown) (unknown) (unknown) (no date) (unknown) (unknown) Back: No CVA tenderness (units unknown) (unknown) (unknown) (no date) (unknown) (unknown) Based her presentation today low suspicion for an acute intra-abdominal surgical (units unknown) (unknown) (unknown) (no date) (unknown) (unknown) Baso # (Auto) 0 (0-100) /uL (units unknown) (unknown) (unknown) (no date) (unknown) (unknown) Baso % (Auto) 0.2 (0-2) % (units unknown) (unknown) (unknown) (no date) (unknown) (unknown) Bedside Urine Bilirubin - Negative (units unknown) (unknown) (unknown) (no date) (unknown) (unknown) Bedside Urine Glucose Negative (units unknown) (unknown) (unknown) (no date) (unknown) (unknown) Bedside Urine Ketone - Negative (units unknown) (unknown) (unknown) (no date) (unknown) (unknown) Bedside Urine Leukocytes +++ 500 (units unknown) (unknown) (unknown) (no date) (unknown) (unknown) Bedside Urine Nitrite - Negative (units unknown) (unknown) (unknown) (no date) (unknown) (unknown) Bedside Urine Occult Blood - Negative (units unknown) (unknown) (unknown) (no date) (unknown) (unknown) Bedside Urine Protein - Negative (units unknown) (unknown) (unknown) (no date) (unknown) (unknown) Bedside Urine Urobilinogen - Negative (units unknown) (unknown) (unknown) (no date) (unknown) (unknown) Bedside Urine pH 7 ( units unknown) (unknown) (unknown) (no date) (unknown) (unknown) Blood Pressure 107/64 08/19/22 19:23 (units unknown) (unknown) (unknown) (no date) (unknown) (unknown) Blood Pressure 108/60 (units unknown) (unknown) (unknown) (no date) (unknown) (unknown) Calcium 8.8 (8.4-10.2) mg/dL (units unknown) (unknown) (unknown) (no date) (unknown) (unknown) Carbon Dioxide 26 (22-32) mmol/L (units unknown) (unknown) (unknown) (no date) (unknown) (unknown) Cardio (units unknown) (unknown) (unknown) (no date) (unknown) (unknown) Cardiovascular (unit s unknown) (unknown) (unknown) (no date) (unknown) (unknown) Cardiovascular : Reports system reviewed and no additional complaints, except as (units unknown) (unknown) (unknown) (no date) (unknown) (unknown) Chief complain t: Abdominal Pain (units unknown) (unknown) (unknown) (no date) (unknown) (unknown) Chloride 101 (98-107) mmol/L (units unknown) (unknown) (unknown) (no date) (unknown) (unknown) Clinical Impression: (units unknown) (unknown) (unknown) (no date) (unknown) (unknown) Complete Blood Count AUTO DIFF Stat (units unknown) (unknown) (unknown) (no date) (unknown) (unknown) Comprehensive Metabolic Panel Stat (units unknown) (unknown) (unknown) (no date) (unknown) (unknown) Const (units unknown) (unknown) (unknown) (no date) (unknown) (unknown) Constitutional (unit s unknown) (unknown) (unknown) (no date) (unknown) (unknown) Constitutional : Reports system reviewed and no additional complaints, except as (units unknown) (unknown) (unknown) (no date) (unknown) (unknown) Course (units unknown) (unknown) (unknown) (no date) (unknown) (unknown) Creatinine 0.7 1 (0.52-1.04) mg/dL (units unknown) (unknown) (unknown) (no date) (unknown) (unknown) : 1 Acct:[id number] (units unknown) (unknown) (unknown) (no date) (unknown) (unknown) Date of Servic e: 08/19/22 (units unknown) (unknown) (unknown) (no date) (unknown) (unknown) Departure (units unknown) (unknown) (unknown) (no date) (unknown) (unknown) Discharge Plan (unit s unknown) (unknown) (unknown) (no date) (unknown) (unknown) Discontinued Medications (units unknown) (unknown) (unknown) (no date) (unknown) (unknown) Documented By: PAWAN (u nits unknown) (unknown) (unknown) (no date) (unknown) (unknown) ED Orders (units unknown) (unknown) (unknown) (no date) (unknown) (unknown) ER Physician: James Sutherland D.O. (units unknown) (unknown) (unknown) (no date) (unknown) (unknown) Effort + Inspe ction: normal respiratory effort (units unknown) (unknown) (unknown) (no date) (unknown) (unknown) Emergency Report (un its unknown) (unknown) (unknown) (no date) (unknown) (unknown) Eos # (Auto) 0 (0-450) /uL (units unknown) (unknown) (unknown) (no date) (unknown) (unknown) Eos % (Auto) 0 .3 L (2-4) % (units unknown) (unknown) (unknown) (no date) (unknown) (unknown) Esterase (units unknown) (unknown) (unknown) (no date) (unknown) (unknown) Estimated GFR > 60 (>60) mL/min (units unknown) (unknown) (unknown) (no date) (unknown) (unknown) Exam (units unknown) (unknown) (unknown) (no date) (unknown) (unknown) GI (units unknown) (unknown) (unknown) (no date) (unknown) (unknown) Gastrointestinal (un its unknown) (unknown) (unknown) (no date) (unknown) (unknown) Gastrointestin al: Reports system reviewed and no additional complaints, except (units unknown) (unknown) (unknown) (no date) (unknown) (unknown) General (units unknown) (unknown) (unknown) (no date) (unknown) (unknown) General: cooperative, comfortable and No ill appearing (units unknown) (unknown) (unknown) (no date) (unknown) (unknown) General: no ra shes or lesions noted (units unknown) (unknown) (unknown) (no date) (unknown) (unknown) Genitourinary (units unknown) (unknown) (unknown) (no date) (unknown) (unknown) Genitourinary: Reports system reviewed and no additional complaints, except as (units unknown) (unknown) (unknown) (no date) (unknown) (unknown) Globulin 3.7 (1.7-4.1) g/dL (units unknown) (unknown) (unknown) (no date) (unknown) (unknown) Glucose 98 (70 -100) mg/dL (units unknown) (unknown) (unknown) (no date) (unknown) (unknown) HENMT (units unknown) (unknown) (unknown) (no date) (unknown) (unknown) HPI - General Adult (units unknown) (unknown) (unknown) (no date) (unknown) (unknown) HPI narrative: (unit s unknown) (unknown) (unknown) (no date) (unknown) (unknown) Hct 43.1 (36-46) % ( units unknown) (unknown) (unknown) (no date) (unknown) (unknown) Head: normal t o inspection and normocephalic (units unknown) (unknown) (unknown) (no date) (unknown) (unknown) Hgb 14.7 (12.0 -16.0) g/dL (units unknown) (unknown) (unknown) (no date) (unknown) (unknown) History of Pre sent Illness (units unknown) (unknown) (unknown) (no date) (unknown) (unknown) I do recommend that you take all the antibiotics as directed. Also recommend (units unknown) (unknown) (unknown) (no date) (unknown) (unknown) Initial Vital Signs (units unknown) (unknown) (unknown) (no date) (unknown) (unknown) Initial Vital Signs: (units unknown) (unknown) (unknown) (no date) (unknown) (unknown) Inspection: no rmal to inspection and non-distended (units unknown) (unknown) (unknown) (no date) (unknown) (unknown) Instructions: DI for Urinary Tract Infection (UTI) (units unknown) (unknown) (unknown) (no date) (unknown) (unknown) Integumentary/ Breast s (units unknown) (unknown) (unknown) (no date) (unknown) (unknown) [address] [address] (units unknown) (unknown) (unknown) (no date) (unknown) (unknown) Lab Data (units unknown) (unknown) (unknown) (no date) (unknown) (unknown) Lab Results (units unknown) (unknown) (unknown) (no date) (unknown) (unknown) Lab results reviewed: Yes I reviewed the patient's lab results. (units unknown) (unknown) (unknown) (no date) (unknown) (unknown) Labs: (units unknown) (unknown) (unknown) (no date) (unknown) (unknown) Last Admin: 19:43 Dose: 4 mg (units unknown) (unknown) (unknown) (no date) (unknown) (unknown) Last Admin: 22:01 Dose: 100 mg (units unknown) (unknown) (unknown) (no date) (unknown) (unknown) Lipase 40 (23- 300) U/L (units unknown) (unknown) (unknown) (no date) (unknown) (unknown) Lipase Stat (units unknown) (unknown) (unknown) (no date) (unknown) (unknown) Lymph # (Auto) 1200 (5145-2163) /uL (units unknown) (unknown) (unknown) (no date) (unknown) (unknown) Lymph % (Auto) 15.9 L (25-40) % (units unknown) (unknown) (unknown) (no date) (unknown) (unknown) MCH 27.6 (26-34) PG (units unknown) (unknown) (unknown) (no date) (unknown) (unknown) MCHC 34.0 (30-36) % (units unknown) (unknown) (unknown) (no date) (unknown) (unknown) MCV 81.0 (80-100) fL (units unknown) (unknown) (unknown) (no date) (unknown) (unknown) MDM Narrative (units unknown) (unknown) (unknown) (no date) (unknown) (unknown) Medical Decisi on Making (units unknown) (unknown) (unknown) (no date) (unknown) (unknown) Medical decisi on making narrative: (units unknown) (unknown) (unknown) (no date) (unknown) (unknown) Medication Instructions Recorded (units unknown) (unknown) (unknown) (no date) (unknown) (unknown) Miscellaneous, Doctor , MD [Primary Care Provider] (units unknown) (unknown) (unknown) (no date) (unknown) (unknown) Mode of arriva l: Ambulatory (units unknown) (unknown) (unknown) (no date) (unknown) (unknown) [place] # (Auto) 700 (0-900) /uL (units unknown) (unknown) (unknown) (no date) (unknown) (unknown) [place] % (Auto) 9.3 (3-14) % (units unknown) (unknown) (unknown) (no date) (unknown) (unknown) Neurologic (units unknown) (unknown) (unknown) (no date) (unknown) (unknown) Neurologic: Re ports system reviewed and no additional complaints, except as (units unknown) (unknown) (unknown) (no date) (unknown) (unknown) Neut # (Auto) 5800 (3744-7670) /uL (units unknown) (unknown) (unknown) (no date) (unknown) (unknown) Neut % (Auto) 74.3 (50-75) % (units unknown) (unknown) (unknown) (no date) (unknown) (unknown) New (units unknown) (unknown) (unknown) (no date) (unknown) (unknown) Nitrofurantoin Macrocrystals (Nitrofurantoin Er 100 Mg Capsule) 100 mg PO NOW (units unknown) (unknown) (unknown) (no date) (unknown) (unknown) ONE (units unknown) (unknown) (unknown) (no date) (unknown) (unknown) Ondansetron HC l (Ondansetron 4 Mg Odt) 4 mg PO NOW PRN (units unknown) (unknown) (unknown) (no date) (unknown) (unknown) Ondansetron HC l (Ondansetron 4 Mg/2 Ml Inj) 4 mg IV NOW PRN (units unknown) (unknown) (unknown) (no date) (unknown) (unknown) Ordered: (units unknown) (unknown) (unknown) (no date) (unknown) (unknown) Orders (units unknown) (unknown) (unknown) (no date) (unknown) (unknown) Oxygen Deliver y Method Room Air 08/19/22 19:23 (units unknown) (unknown) (unknown) (no date) (unknown) (unknown) Oxygen Deliver y Method Room Air (units unknown) (unknown) (unknown) (no date) (unknown) (unknown) PRN Reason: Na usea And Vomiting (units unknown) (unknown) (unknown) (no date) (unknown) (unknown) Palpation: sof t, No firm and tender (units unknown) (unknown) (unknown) (no date) (unknown) (unknown) Patient Dispos ition: Home (units unknown) (unknown) (unknown) (no date) (unknown) (unknown) Patient History (uni ts unknown) (unknown) (unknown) (no date) (unknown) (unknown) Patient is a 22-year-old female who is here for evaluation of abdominal pain and (units unknown) (unknown) (unknown) (no date) (unknown) (unknown) Patient: Rajiv Nash MR#: [id number] (units unknown) (unknown) (unknown) (no date) (unknown) (unknown) Plt Count 350 (150-400) X103/uL (units unknown) (unknown) (unknown) (no date) (unknown) (unknown) Point of Care Testing (units unknown) (unknown) (unknown) (no date) (unknown) (unknown) Point of care testing: (units unknown) (unknown) (unknown) (no date) (unknown) (unknown) Potassium 3.8 (3.4-5.1) mmol/L (units unknown) (unknown) (unknown) (no date) (unknown) (unknown) Test Results Negative (units unknown) (unknown) (unknown) (no date) (unknown) (unknown) Prescriptions: (unit s unknown) (unknown) (unknown) (no date) (unknown) (unknown) Previous Rx's (units unknown) (unknown) (unknown) (no date) (unknown) (unknown) Pulse Oximetry 100 08/19/22 19:23 (units unknown) (unknown) (unknown) (no date) (unknown) (unknown) Pulse Oximetry 100 ( units unknown) (unknown) (unknown) (no date) (unknown) (unknown) Pulse Rate 103 H 08/19/22 19:23 (units unknown) (unknown) (unknown) (no date) (unknown) (unknown) Pulse Rate 76 (units unknown) (unknown) (unknown) (no date) (unknown) (unknown) RBC 5.32 H (4. 0-5.2) X106/uL (units unknown) (unknown) (unknown) (no date) (unknown) (unknown) RDW 14.2 (11.6 -14.8) % (units unknown) (unknown) (unknown) (no date) (unknown) (unknown) Rate: regular rate ( units unknown) (unknown) (unknown) (no date) (unknown) (unknown) Referrals: (units unknown) (unknown) (unknown) (no date) (unknown) (unknown) Related Data (units unknown) (unknown) (unknown) (no date) (unknown) (unknown) Resp (units unknown) (unknown) (unknown) (no date) (unknown) (unknown) Respiratory Ra te 18 08/19/22 19:23 (units unknown) (unknown) (unknown) (no date) (unknown) (unknown) Respiratory Rate 18 (units unknown) (unknown) (unknown) (no date) (unknown) (unknown) Respiratory (units unknown) (unknown) (unknown) (no date) (unknown) (unknown) Respiratory: R eports system reviewed and no additional complaints, except as (units unknown) (unknown) (unknown) (no date) (unknown) (unknown) Review of Systems (u nits unknown) (unknown) (unknown) (no date) (unknown) (unknown) Rx Instructions: (un its unknown) (unknown) (unknown) (no date) (unknown) (unknown) She expressed understanding (units unknown) (unknown) (unknown) (no date) (unknown) (unknown) Signed By: (units unknown) (unknown) (unknown) (no date) (unknown) (unknown) Skin (units unknown) (unknown) (unknown) (no date) (unknown) (unknown) Skin/Breast: R eports system reviewed and no additional complaints, except as (units unknown) (unknown) (unknown) (no date) (unknown) (unknown) Smoking Status : Never smoker (units unknown) (unknown) (unknown) (no date) (unknown) (unknown) Social History (units unknown) (unknown) (unknown) (no date) (unknown) (unknown) Sodium 134 L (137-145) mmol/L (units unknown) (unknown) (unknown) (no date) (unknown) (unknown) Source: patient (uni ts unknown) (unknown) (unknown) (no date) (unknown) (unknown) Stand Alone Fo luís: Patient Portal/API (units unknown) (unknown) (unknown) (no date) (unknown) (unknown) Stated complai nt: abd pain/vomiting x1 day (units unknown) (unknown) (unknown) (no date) (unknown) (unknown) Stop: 08/19/22 21:56 (units unknown) (unknown) (unknown) (no date) (unknown) (unknown) Substance Use Type: marijuana (units unknown) (unknown) (unknown) (no date) (unknown) (unknown) Temperature 98 .6 F 08/19/22 19:23 (units unknown) (unknown) (unknown) (no date) (unknown) (unknown) Time Seen by Provider: 08/19/22 21:40 (units unknown) (unknown) (unknown) (no date) (unknown) (unknown) Total Bilirubi n 0.5 (0.2-1.3) mg/dL (units unknown) (unknown) (unknown) (no date) (unknown) (unknown) Total Protein 7.8 (6.3-8.2) g/dL (units unknown) (unknown) (unknown) (no date) (unknown) (unknown) Ur Culture Indicated? Specimen cultured (units unknown) (unknown) (unknown) (no date) (unknown) (unknown) Ur Squamous Ep ith Cells 0-1 /hpf (0-5/HPF) (units unknown) (unknown) (unknown) (no date) (unknown) (unknown) Urine Bacteria Occasional (0-1) (None) (units unknown) (unknown) (unknown) (no date) (unknown) (unknown) Urine Culture Stat ( units unknown) (unknown) (unknown) (no date) (unknown) (unknown) Urine Dip (units unknown) (unknown) (unknown) (no date) (unknown) (unknown) Urine Microsco pic Stat (units unknown) (unknown) (unknown) (no date) (unknown) (unknown) Urine RBC 1-5/ hpf (0-5/HPF) (units unknown) (unknown) (unknown) (no date) (unknown) (unknown) Urine Specific Neon 1.005 (units unknown) (unknown) (unknown) (no date) (unknown) (unknown) Urine WBC 10-3 0/hpf H (0-5/HPF) (units unknown) (unknown) (unknown) (no date) (unknown) (unknown) Vital Signs - 8 hr ( units unknown) (unknown) (unknown) (no date) (unknown) (unknown) Vital Signs (units unknown) (unknown) (unknown) (no date) (unknown) (unknown) Vital signs: (units unknown) (unknown) (unknown) (no date) (unknown) (unknown) WBC 7.8 (4.5-1 1.0) X103/uL (units unknown) (unknown) (unknown) (no date) (unknown) (unknown) [Embedded Imag e Not Available] (units unknown) (unknown) (unknown) (no date) (unknown) (unknown) alcohol intake frequency: holidays/special occasions only (units unknown) (unknown) (unknown) (no date) (unknown) (unknown) as documented (units unknown) (unknown) (unknown) (no date) (unknown) (unknown) bleeding. Has not tried anything for symptoms prior to (units unknown) (unknown) (unknown) (no date) (unknown) (unknown) capsule (Macrobid) ( units unknown) (unknown) (unknown) (no date) (unknown) (unknown) control since that time. Today she is having some urinary frequency and (units unknown) (unknown) (unknown) (no date) (unknown) (unknown) documented (units unknown) (unknown) (unknown) (no date) (unknown) (unknown) for pancreatit is. Patient does have bacteria in her urine and she is having (units unknown) (unknown) (unknown) (no date) (unknown) (unknown) however advise d if her symptoms do not improve that she should contact her (units unknown) (unknown) (unknown) (no date) (unknown) (unknown) low suspicion for pyelonephritis. We will treat her with the antibiotics (units unknown) (unknown) (unknown) (no date) (unknown) (unknown) menstrual cycl es. She did get end of last year. She is been on (units unknown) (unknown) (unknown) (no date) (unknown) (unknown) monohydrate/ma crocry stals 100 mg (units unknown) (unknown) (unknown) (no date) (unknown) (unknown) must administe r with a meal/food (units unknown) (unknown) (unknown) (no date) (unknown) (unknown) naproxen Aller gy Intermediate ITCHING Verified 08/19/22 19:44 (units unknown) (unknown) (unknown) (no date) (unknown) (unknown) nitrofurantoin 100 mg PO Q12H 5 days #10 caps 08/19/22 (units unknown) (unknown) (unknown) (no date) (unknown) (unknown) nitrofurantoin monohyd/m-cryst [Macrobid] 100 mg capsule (units unknown) (unknown) (unknown) (no date) (unknown) (unknown) not improve wi th the antibiotics. Return to the emergency department for new or (units unknown) (unknown) (unknown) (no date) (unknown) (unknown) pathology such as appendicitis, obstruction acute cholecystitis. Low suspicion (units unknown) (unknown) (unknown) (no date) (unknown) (unknown) primary doctor for referral to see either gastroenterology or potentially software packaging engineer. (units unknown) (unknown) (unknown) (no date) (unknown) (unknown) seems to occur approximately once a month but not specifically associated with (units unknown) (unknown) (unknown) (no date) (unknown) (unknown) some symptoms that could be associated with the urinary tract infection. I have (units unknown) (unknown) (unknown) (no date) (unknown) (unknown) urgency. No fe vers. No back pain. Change in bowel habits. No vaginal (units unknown) (unknown) (unknown) (no date) (unknown) (unknown) vomiting for t he past day. She is had discomfort like this in the past. It (units unknown) (unknown) (unknown) (no date) (unknown) (unknown) worsening symptoms ( units unknown) (unknown) (unknown) (no date) (unknown) (unknown) you contact [facility] primary doctor for a follow-up especially if your symptoms do (units unknown) (unknown) Result panel 81 (unknown) (no date) (unknown) (unknown) (no value) (units unknown) (unknown) (unknown) (no date) (unknown) (unknown) 08/19/22 (units unknown) (unknown) (unknown) (no date) (unknown) (unknown) 08/20/22 1642 (units unknown) (unknown) (unknown) (no date) (unknown) (unknown) [id number] (units unknown) (unknown) (unknown) (no date) (unknown) (unknown) Age/Sex: 22 / F Date of Service: (units unknown) (unknown) (unknown) (no date) (unknown) (unknown) Allergies (units unknown) (unknown) (unknown) (no date) (unknown) (unknown) [facility] (units unknown) (unknown) (unknown) (no date) (unknown) (unknown) SUZANNE Swain [id number] (units unknown) (unknown) (unknown) (no date) (unknown) (unknown) Attending Dr: Dodie Hess P.A-C (units unknown) (unknown) (unknown) (no date) (unknown) (unknown) : 1 Acct:[id number] (units unknown) (unknown) (unknown) (no date) (unknown) (unknown) Dept at . (units unknown) (unknown) (unknown) (no date) (unknown) (unknown) Documented By: Dodie Hess 08/19/22 1844 (units unknown) (unknown) (unknown) (no date) (unknown) (unknown) Health 'but th ey didn't really do anything'. Patient was provided education (units unknown) (unknown) (unknown) (no date) (unknown) (unknown) ITCHING (units unknown) (unknown) (unknown) (no date) (unknown) (unknown) Intake Note: (units unknown) (unknown) (unknown) (no date) (unknown) (unknown) Intake perform ed by: Mally Camara (units unknown) (unknown) (unknown) (no date) (unknown) (unknown) Intake (units unknown) (unknown) (unknown) (no date) (unknown) (unknown) Intake- Desire barfield Staff (units unknown) (unknown) (unknown) (no date) (unknown) (unknown) Loc: [facility] (units unknown) (unknown) (unknown) (no date) (unknown) (unknown) Nurse Office Visit ( units unknown) (unknown) (unknown) (no date) (unknown) (unknown) Patient presen ts to [facility] With concerns for worsening abdominal pain. Patient (units unknown) (unknown) (unknown) (no date) (unknown) (unknown) Patient: Rajiv Nash MR#: [id number] (units unknown) (unknown) (unknown) (no date) (unknown) (unknown) Reason For Visit (un its unknown) (unknown) (unknown) (no date) (unknown) (unknown) She reports sh e does not currently have a PCP, and has been evaluated at [facility] (units unknown) (unknown) (unknown) (no date) (unknown) (unknown) Signed By: <Electronically signed by Dodie Hess> (units unknown) (unknown) (unknown) (no date) (unknown) (unknown) Signed (units unknown) (unknown) (unknown) (no date) (unknown) (unknown) This note may have been all or partially generated using voice recognition (units unknown) (unknown) (unknown) (no date) (unknown) (unknown) 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 Pt reports she has had 'severe' (units unknown) (unknown) (unknown) (no date) (unknown) (unknown) have occurred. If there are any questions, please contact the Medical Records (units unknown) (unknown) (unknown) (no date) (unknown) (unknown) her. (units unknown) (unknown) (unknown) (no date) (unknown) (unknown) may occur. Occasional wrong-word or 'sound-alike' substitutions may have (units unknown) (unknown) (unknown) (no date) (unknown) (unknown) menses 3 weeks ago. She denies any prior dx of endometriosis or ovarian cysts. (units unknown) (unknown) (unknown) (no date) (unknown) (unknown) naproxen Aller gy (Intermediate, Verified 08/19/22 19:44) (units unknown) (unknown) (unknown) (no date) (unknown) (unknown) occurred due t o the inherent limitations of voice recognition software. Please (units unknown) (unknown) (unknown) (no date) (unknown) (unknown) of education, and declined evaluation by [facility] provider at this time. She states (units unknown) (unknown) (unknown) (no date) (unknown) (unknown) provider with understanding that she may be advised to seek evaluation in ED due (units unknown) (unknown) (unknown) (no date) (unknown) (unknown) read the note carefully and recognize, using context, where these substitutions (units unknown) (unknown) (unknown) (no date) (unknown) (unknown) regarding diag nostic limitations of the [facility]. She was offered evaluation by [facility] (units unknown) (unknown) (unknown) (no date) (unknown) (unknown) she will go to the ED. Declined nurse escort, states her boyfriend will take (units unknown) (unknown) (unknown) (no date) (unknown) (unknown) software. Alth ough every effort is made to edit content, logistics team lead errors (units unknown) (unknown) (unknown) (no date) (unknown) (unknown) states that sh e has had intermittent abdominal pain for several months. She (units unknown) (unknown) (unknown) (no date) (unknown) (unknown) states that th e pain is generalized across her abdomen on left and right sides, (units unknown) (unknown) (unknown) (no date) (unknown) (unknown) stomach cramps and vomiting today. She denies fever. Denies constipation, last (units unknown) (unknown) (unknown) (no date) (unknown) (unknown) to her level o f reported pain and vomiting. Patient acknowledged understanding (units unknown) (unknown) Result panel 82 (unknown) (no date) (unknown) (unknown) (no value) (units unknown) (unknown) (unknown) (no date) (unknown) (unknown) Mixed gram + f alina. Deemed unsuitable for further studies. (units unknown) (unknown) Social History date description facility 2022-08-19 00:00 Never smoked tobacco (finding) [facility] Vital Signs date measurement value units 2022-08-19 00:00 BMI 25.5 kg/m2 2022-08-19 00:00 BP_diastolic 60 mmHg 2022-08-19 00:00 BP_systolic 108 mmHg 2022-08-19 00:00 heart_rate 76 /min 2022-08-19 00:00 height_metric 162.56 cm 2022-08-19 00:00 height_standard 64 in 2022-08-19 00:00 o2_saturation 100 % 2022-08-19 00:00 respiration_rate 18 /min 2022-08-19 00:00 temperature_metric 37 C 2022-08-19 00:00 temperature_standard 98.6 F 2022-08-19 00:00 weight_metric 67.6 kg 2022-08-19 00:00 weight_standard 149.03 lb
[2022-09-22 11:12] LABS: BILIRUBIN,URINE NEGATIVE (NEGATIVE); GLUCOSE, URINE (UA) NEGATIVE (NEGATIVE); KETONES,URINE (UA) NEGATIVE (NEGATIVE); LEUKOCYTE ESTERASE, URINE NEGATIVE (NEGATIVE); NITRITE,URINE NEGATIVE (NEGATIVE); OCCULT BLOOD,URINE NEGATIVE (NEGATIVE); PROTEIN,URINE NEGATIVE (NEGATIVE); UROBILINOGEN,URINE 0.2 (NORMAL) E.U./dL (NORMAL)
[2022-09-22 11:16] LABS: CLARITY,URINE CLEAR (CLEAR)
--- NOTE | 2022-09-22 12:04 | ED Physician Documentation ---
PD HPI FEMALE - Stated complaint Stated Complaint: CRAMPING - Chief complaint Chief Complaint: General - History obtained from History obtained from: Patient - Additional information Additional information: Patient is a G2, P1 approximately 8 weeks presenting for evaluation Of abdominal cramping that has been present since this morning. Patient denies any vaginal bleeding or discharge. She believes her last period was in July. She is planning on following up with the midwives. Denies prior complications with her previous . Denies dizziness, chest pain, difficulty breathing, back pain, dysuria.She is taking a vitamin. She called her costume design teacher this morning who directed her to come to the emergency department for evaluation. She has not had care yet for this . Review of Systems Constitutional: denies: Fever Cardiac: denies: Chest pain / pressure Respiratory: denies: Dyspnea GI: reports: Abdominal Pain : denies: Dysuria Musculoskeletal: denies: Back pain PD PAST MEDICAL HISTORY - Past Medical History Past Medical History: Yes Cardiovascular: None Respiratory: Asthma GI: GERD - Past Surgical History Past Surgical History: Yes - Present Medications Home Medications: Ambulatory Orders Medication Instructions Recorded Confirmed Omeprazole Magnesium 20 mg PO DAILY 06/22/20 03/27/22 - Allergies Allergies/Adverse Reactions: Allergies Allergy/AdvReac Type Severity Reaction Status Date / Time Antihistamines - Piperidine Allergy Respiratory Verified 09/22/22 10:13 naproxen [From Aleve] AdvReac Itching Verified 09/22/22 10:13 - Social History Does the pt smoke?: No Smoking Status: Never smoker Does the pt drink ETOH?: Yes Does the pt have substance abuse?: No - Immunizations Immunizations are current?: Yes - POLST Patient has POLST: No PD ED PE NORMAL - General General: Alert and oriented X 3, No acute distress, Well developed/nourished - HEENT HEENT: Atraumatic - Neck Neck: Supple, no meningeal sign - Cardiac Cardiac: RRR, No murmur - Respiratory Respiratory: No respiratory distress, Clear bilaterally - Abdomen Abdomen: Normal bowel sounds, Soft, Non tender, Non distended - Derm Derm: Warm and dry - Neuro Neuro: Normal speech Results - Vitals Vitals: Vital Signs - 24 hr 09/22/22 09/22/22 09/22/22 10:09 12:12 14:00 Temperature 36.8 C 36.8 C 36.5 C Heart Rate 82 82 80 Respiratory 16 16 16 Rate Blood Pressure 119/59 L 118/60 118/62 O2 Saturation 98 98 100 Oxygen O2 Source Room air - Labs Labs: Laboratory Tests 09/22/22 09/22/22 09/22/22 10:20 10:20 10:31 WBC 7.8 RBC 5.06 Hgb 13.9 Hct 42.0 MCV 83.0 MCH 27.5 MCHC 33.1 RDW 13.5 Plt Count 384 MPV 9.0 Neut # (Auto) 5.1 Lymph # (Auto) 2.0 [place] # (Auto) 0.6 Eos # (Auto) 0.0 Baso # (Auto) 0.1 Absolute Nucleated RBC 0.00 Nucleated RBC % 0.0 Sodium Potassium Chloride Carbon Dioxide Anion Gap BUN Creatinine Estimated GFR (MDRD) Glucose Calcium Total Bilirubin AST ALT Alkaline Phosphatase Total Protein Albumin Globulin Albumin/Globulin Ratio Lipase HCG, Quant 2877.00 Urine Color LIGHT YELLOW Urine Clarity CLEAR Urine pH 7.0 Ur Specific [place] 1.010 Urine Protein NEGATIVE Urine Glucose (UA) NEGATIVE Urine Ketones NEGATIVE Urine Occult Blood NEGATIVE Urine Nitrite NEGATIVE Urine Bilirubin NEGATIVE Urine Urobilinogen 0.2 (NORMAL) Ur Leukocyte Esterase NEGATIVE Ur Microscopic Review NOT INDICATED Urine Culture Comments NOT INDICATED Blood Type 09/22/22 09/22/22 10:31 10:31 WBC RBC Hgb Hct MCV MCH MCHC RDW Plt Count MPV Neut # (Auto) Lymph # (Auto) [place] # (Auto) Eos # (Auto) Baso # (Auto) Absolute Nucleated RBC Nucleated RBC % Sodium 138 Potassium 3.8 Chloride 109 Carbon Dioxide 25 Anion Gap 4.0 L BUN 7 Creatinine 0.6 Estimated GFR (MDRD) 126 Glucose 96 Calcium 8.7 Total Bilirubin 0.3 AST 16 ALT 17 Alkaline Phosphatase 87 Total Protein 7.3 Albumin 3.3 Globulin 4.0 Albumin/Globulin Ratio 0.8 L Lipase 27 HCG, Quant Urine Color Urine Clarity Urine pH Ur Specific [place] Urine Protein Urine Glucose (UA) Urine Ketones Urine Occult Blood Urine Nitrite Urine Bilirubin Urine Urobilinogen Ur Leukocyte Esterase Ur Microscopic Review Urine Culture Comments Blood Type O POSITIVE PD Medical Decision Making - ED course Complexity details: reviewed results, re-evaluated patient, d/w patient ED course: Patient presenting for evaluation of lower abdominal cramping in the setting of early . No vaginal bleeding. Vital signs are stable. Abdominal exam is benign. CBC, chemistries and urine analysis were reviewed without any significant findings. Patient's blood type is O+. Her hCG level is 2800. First trimester ultrasound was ordered Which I also reviewed and per preliminary read by scrub tech there Is an intrauterine gestational sac. No other findings to suggest an ectopic . However no other findings of . I reviewed ultrasound results with the patient.She understands need for close follow-up with OB and follows with nurse costume design teacher Abigail Gunderson.Patient is advised on strict return precautions and need for close follow-up. Departure - Departure Disposition: Home, Self Care Clinical Impression: at early stage Condition: Stable Instructions: ED Miscarriage Poss Follow-Up: Abigail Gunderson, LUISITO, NEGATIVE ASSEMBLER [Provider Admit Priv/Credential] - Comments: Your ultrasound shows signs of early which appears To be located in the uterus. The ultrasound estimates that you are early along in your at approximately 5 weeks.At this time it appears to be too early to see a heartbeat.I would recommend close follow-up with your costume design teacher As they may want to repeat an ultrasound in the next week Or recheck your labs. Your HCG level ( hormone) is 2877. Your blood type is O+. Return to the emergency department with any worsening symptoms such as heavy bleeding (Soaking through a pad an hour for several hours). Discharge Date/Time: 09/22/22 14:01
[2022-09-22 14:03] VITALS: BP 118/62
--- NOTE | 2022-09-22 14:42 | Ultrasound Report ---
PROCEDURE: OB First Trimester w/TV INDICATIONS: cramping, severe abd pain at times. OUTSIDE/PRIOR DATING DATA: Last menstrual period (LMP): 07/28/2022. LMP-based estimated date of delivery (MARSHALL): 05/04/2023. TECHNIQUE: Real-time scanning was performed of the fetus and maternal pelvic organs, with image documentation. Endovaginal scanning was also performed to better visualize the fetus and maternal ovaries. COMPARISON: None. FINDINGS: Single intrauterine gestational sac noted without internal contents. Otherwise, the uterus, both ovar ies and pelvis are unremarkable. No evidence of free fluid or adnexal mass. IMPRESSION: 1. Small intrauterine gestational sac without pole or cardiac motion. Differential possibilitie s include normal early , blighted ovum, and nonvisualized ectopic Reviewed by: Mike Loving MD on 09/22/2022 1:41 PM AKDT Approved by: Mike Loving MD on 09/22/2022 1:41 PM AKDT Station ID: [id number]
== END 2022-09-22 14:01 | disposition home or self-care (01) ==
LOC: ED 09:56
DX: O99.891 Other specified diseases and conditions complicating pregnancy (principal); R10.9 Unspecified abdominal pain; Z3A.08 8 weeks gestation of pregnancy
CPT/HCPCS: 36415; 80053; 81001; 81003; 83690; 84702; 85025; 86900; 86901; 87086; 99283; 99284

== ENCOUNTER 2022-09-26 15:15 | Outpatient (CLI) | payer MEDICAID | END 2022-09-26 15:16 | disposition home or self-care (01) | LOC: LAB 15:15 | PROVIDERS: ATTEND Nurse Practitioner Obstetrics & Gynecology | DX: O20.0 Threatened abortion (principal) | CPT/HCPCS: 36415; 84702 ==

== ENCOUNTER 2023-01-09 13:24 | Outpatient (CLI) | payer MEDICAID, OTHER ==
--- NOTE | 2023-01-10 09:03 | Ultrasound Report ---
PROCEDURE: OB Detailed Eval INDICATIONS: SUPERVISION OF NORMAL OUTSIDE/PRIOR DATING DATA: Last menstrual period (LMP): 07/28/2022. LMP-based estimated date of delivery (MARSHALL): 05/04/2023. First dating scan (date and location): 09/29/2022 at . Estimated date of delivery (MARSHALL) from first dating scan: 05/25/2023. The below data below was generated using the mean MARSHALL of 05/25/2023 TECHNIQUE: Real-time scanning was performed of the fetus, with image documentation and biometric measurements. COMPARISON: OB ultrasound, 09/22/2022. FINDINGS: General: A single living intrauterine gestation is present. Presentation: Vertex Placenta: Placental position is posterior, without previa. Amniotic fluid index: 12.0 cm, within the largest pocket 3.7 cm. heart rate: 148 beats per minute. Maternal cervical canal: 5.1 cm long; normal length is 2.5 cm or more. biometrics: Biparietal diameter: 20 weeks 2 days Head circumference: 19 weeks 4 days Abdominal circumference: 20 weeks 0 day Femur length: 20 weeks 2 days Estimated gestational age from initial scan: 20 weeks 4 days Composite gestational age from present scan: 20 weeks 0 day Estimated weight and percentile: 332 g; 21% Measurement variability in biometric dating: +/- 10 days from 12-20 weeks gestation, +/- 2 weeks from 20-30 weeks gestation, +/- 3 weeks at 30 weeks gestation or later. Anatomic survey: Neuro: Ventricles are normal at less than 10 mm. Cisterna magna is normal at 3-11 mm. Cerebellum i s normal in size and morphology. Nuchal skin fold: Normal at less than 6 mm between 14 and 20 weeks gestational age. Face: Nose and lips, facial profile are normal. Spine: No evidence for spina bifida. Heart: 4-chambered heart is present, with normal ventricular outflow tracts. Diaphragm: Diaphragm is intact. Stomach: Left-sided stomach is present. Kidneys: No hydronephrosis. Normal is less than 5 mm in 2nd trimester, less than 7 mm in 3rd trimester. Cord: 3 vessel cord has orthotopic insertion. Bladder: Normal in size. Extremities: All 4 extremities are visualized. IMPRESSION: 1. A single living IUP redemonstrated. There is appropriate interval growth. 2. weight is at 21% for gestational age. 3. ABHISHEK 12.0 cm. 4. Normal anatomic survey. Reviewed by: Ariana Patrick MD on 01/10/2023 9:02 AM PDT Approved by: Ariana Patrick MD on 01/10/2023 9:02 AM PDT Station ID: [id number]
== END 2023-01-09 13:25 | disposition home or self-care (01) ==
LOC: DI 13:24
PROVIDERS: ATTEND Nurse Practitioner Obstetrics & Gynecology
DX: Z34.02 Encounter for supervision of normal first pregnancy, second trimester (principal)

== ENCOUNTER 2023-02-15 11:09 | Outpatient (CLI) | payer MEDICAID ==
[2023-02-15 12:36] LABS: BASOPHILS % (AUTO) 0.4 %; EOSINOPHILS % (AUTO) 0.3 %; HCT - HEMATOCRIT 36.8 % (37.0-47.0); HGB - HEMOGLOBIN 11.9 g/dL (12.0-16.0); LYMPHOCYTES # (AUTO) 2.1 10^3/uL (1.5-3.5); LYMPHOCYTES % (AUTO) 22.1 %; MEAN CORPUSCULAR HEMOGLOBIN 28.3 pg (27.0-31.0); MEAN CORPUSCULAR HGB CONC 32.3 g/dL (32.0-36.0); MEAN CORPUSCULAR VOLUME 87.4 fL (81.0-99.0); MEAN PLATELET VOLUME 9.4 fL (7.9-10.8); MONOCYTES # (AUTO) 0.7 10^3/uL (0.0-1.0); MONOCYTES % (AUTO) 7.2 %; NEUTROPHILS # (AUTO) 6.7 10^3/uL (1.5-6.6); PLT - PLATELET COUNT 343 10^3/uL (130-450); RED BLOOD COUNT 4.21 10^6/uL (4.20-5.40); RED CELL DISTRIBUTION WIDTH 12.4 % (12.0-15.0); WHITE BLOOD COUNT 9.6 x10^3/uL (4.8-10.8)
[2023-02-16 06:10] LABS: HBsAG SCREEN Negative (Negative); RPR Non Reactive (Non Reactive)
[2023-02-16 20:08] LABS: HIV SCREEN 4TH GENERATION Non Reactive (Non Reactive)
== END 2023-02-15 11:10 | disposition home or self-care (01) ==
LOC: LAB 11:09
PROVIDERS: ATTEND Nurse Practitioner Obstetrics & Gynecology
DX: Z36.9 Encounter for antenatal screening, unspecified (principal)
CPT/HCPCS: 36415; 82950; 85025; 86592; 86762; 86850; 86900; 86901; 87340; 87389

== ENCOUNTER 2023-05-24 03:38 | Inpatient (IN) | payer MEDICAID ==
[2023-05-24] MEDS ORDERED: CARBOPROST TROMETHAMINE 250 MCG/ML VIAL IM PRN (07:42)
[2023-05-24] MEDS ORDERED: TRANEXAMIC ACID IN NACL 1,000 MG/100 ML BAG IV PRN (07:42)
[2023-05-24] MEDS ORDERED: hydrALAZINE INJ 20 MG/ML VIAL IVP PRN ×2 (07:42)
[2023-05-24] MEDS ORDERED: OXYTOCIN 10 UNIT/ML VIAL IM PRN (07:42)
[2023-05-24] MEDS ORDERED: LABETALOL 20 MG/4 ML SYRINGE IVP PRN ×3 (07:42)
[2023-05-24] MEDS ORDERED: fentaNYL 100 MCG/2 ML VIAL IVP PRN (07:42)
[2023-05-24] MEDS ORDERED: METHYLERGONOVINE 0.2 MG/ML VIAL IM PRN (07:42)
[2023-05-24] MEDS ORDERED: NIFEdipine 10 MG CAPSULE PO PRN (07:42)
[2023-05-24] MEDS ORDERED: TERBUTALINE 1 MG/ML VIAL SUBQ PRN (07:42)
[2023-05-24] MEDS ORDERED: miSOPROStoL 200 MCG TABLET PR PRN (07:42)
[2023-05-24] MEDS ORDERED: miSOPROStoL 200 MCG TABLET BC PRN (07:42)
[2023-05-24] MEDS ORDERED: SODIUM CHLORIDE FLUSH 0.9% 10 ML SYRINGE IVP PRN (07:42)
[2023-05-24] MEDS ORDERED: SODIUM CHLORIDE FLUSH 0.9% 10 ML SYRINGE IVP SCH (08:00)
[2023-05-24 08:17] LABS: BASOPHILS # (AUTO) 0.1 10^3/uL (0.0-0.1); BASOPHILS % (AUTO) 0.4 %; EOSINOPHILS % (AUTO) 0.1 %; HCT - HEMATOCRIT 31.1 % (37.0-47.0); HGB - HEMOGLOBIN 9.7 g/dL (12.0-16.0); LYMPHOCYTES # (AUTO) 2.1 10^3/uL (1.5-3.5); LYMPHOCYTES % (AUTO) 15.3 %; MEAN CORPUSCULAR HEMOGLOBIN 23.8 pg (27.0-31.0); MEAN CORPUSCULAR HGB CONC 31.2 g/dL (32.0-36.0); MEAN CORPUSCULAR VOLUME 76.4 fL (81.0-99.0); MEAN PLATELET VOLUME 9.8 fL (7.9-10.8); MONOCYTES # (AUTO) 0.9 10^3/uL (0.0-1.0); MONOCYTES % (AUTO) 6.7 %; NEUTROPHILS # (AUTO) 10.3 10^3/uL (1.5-6.6); NEUTROPHILS % (AUTO) 76.8 %; PLT - PLATELET COUNT 331 10^3/uL (130-450); RED BLOOD COUNT 4.07 10^6/uL (4.20-5.40); RED CELL DISTRIBUTION WIDTH 14.3 % (12.0-15.0); WHITE BLOOD COUNT 13.5 x10^3/uL (4.8-10.8)
--- NOTE | 2023-05-24 09:11 | HISTORY & PHYSICAL EXAMINATION ---
Admit History - Visit Reason Visit Reason: Contractions - : 2 Parity: 1 Premature: 0 Ectopic: 0 : 1 Care: positive: [facility] Risk/History: positive: None Complications This : positive: None Smoking Status: Never smoker - Mother's Labs Mother's Blood Type: positive: O Mother's RH: positive: Positive GBS: positive: Group B Step Negative Rubella Status: positive: Immune - HPI Diagnosis/Indication for NST: Other Current [facility] 05/25/23 Gestation 39 Weeks and 6 Days 2 Para 1 Vital Signs Temperature 36.5 C 05/24/23 03:50 Heart Rate 98 05/24/23 03:50 Respiratory Rate 18 05/24/23 03:50 Blood Pressure 129/67 05/24/23 03:50 Temperature 36.5 C 05/24/23 03:50 Heart Rate 98 05/24/23 03:50 Respiratory Rate 18 05/24/23 03:50 Blood Pressure 129/67 05/24/23 03:50 O2 Saturation If not protocol: Oxygen Flow, liters/minute - NST Procedure NST Procedure Start Date 05/24/23 Start Time 03:55 Stop Time 04:21 Vibroacoustic Stimulation Used No Patient States Movement Yes - Results and Plan Findings/Impression: NST reactive. FHR baseline 140s, moderate variability, + accels, no decels Contractions palpate strong every 2-4 minutes with soft resting tone Meds/Allgy - Home Medications Home Medications: Ambulatory Orders Medication Instructions Recorded Confirmed Omeprazole Magnesium 20 mg PO DAILY 06/22/20 05/24/23 - Allergies Allergies/Adverse Reactions: Allergies Allergy/AdvReac Type Severity Reaction Status Date / Time Antihistamines - Piperidine Allergy Respiratory Verified 09/22/22 10:13 naproxen [From Aleve] AdvReac Itching Verified 09/22/22 10:13 Review of Systems - Constitutional Constitutional: denies: Fatigue, Fever, Chills, Malaise - Eyes Eyes: denies: Blurred vision, Spots in vision, Dipolpia - Cardiovascular Cariovascular: denies: Irregular heart rate, Palpitations, Chest pain, Edema - Respiratory Respiratory: denies: Cough, Wheezing, SOB at rest - Gastrointestinal Gastrointestinal: denies: Constipation, Diarrhea, Nausea, Vomiting - Genitourinary Genitourinary: denies: Dysuria, Frequency - Integumentary Integumentary: denies: Rash, Pruritis - Neurological Neurological: denies: Headache - Psychiatric Psychiatric: denies: Depression, Anxiety - Hematologic/Lymphatic Hematologic/Lymphatic: denies: Anemia - All Other Systems All Other Systems: reports: Reviewed and negative Physical - Abdominal Exam Vital Signs: Temp Pulse Resp BP Pulse Ox O2 Flow Rate 36.5 C 98 18 129/67 05/24/23 03:50 05/24/23 03:50 05/24/23 03:50 05/24/23 03:50 Contraction Frequency (min/apart): 2-4 Contraction Intensity: positive: Strong Uterine Resting Tone: positive: Soft - Monitoring Heart Rate Baseline: 140 Strip Review: positive: Category I - Presentation Presentation: positive: Vertex - Vaginal Exam Membranes: positive: Membranes intact Dilation (in cm): 6 Effacement (%): 80 Station: positive: -1 - Speculum Exam Speculum Exam Performed: positive: No Plan for Labor - Plan For Labor I expect patient to be DC'd or transferred within 96 hours.: Yes Plan for Labor: HPI: This 23yo @ 39.6wks gestation by LMP c/w 6.0wk U/S presents to [facility] with c/o contractions that started at 0200 this morning. Upon arrival she is found to contract every 2-3 minutes with soft resting tone. SVE 3/80/-3 and vertex with intact membranes. She denies vaginal bleeding or leakage of fluid but reports she has gradually been losing her mucus plug since her membrane sweep yesterday. She has been a patient of [facility] for the duration of her which has remained uncomplicated. She is supported by her partner Tyler today. She will be admitted to [facility] for expectant management. 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 SAB x 0. No pap history. Denies HSV in self and partner. Medical Hx: no significant Surgical Hx: eye surgery x 2 Family Hx: HTN - father; breast cancer - mother; bone cancer - mother; schizophrenia - MGM; bipolar - MGM Meds: PNV, Citalopram 20mg, omeprazole 40mg, albuterol inhaler PRN - has not used in several years. Allergies: Naproxen Social: Single lives with partner Tyler. They live with her parents live in [place] who are supportive. Past THC use but quit for . No tobacco, ETOH or recreational drug use currently. Caffeine intake -minimal. course: O positive, antibody negative Rubella immune, varicella immune RPR non-reactive, HIV - nonreactive Hep B neg Initial U/s @ 6.0wks c/w LMP dating Genetic screening - declined FAS WNL. Posterior placenta, no previa. Size c/w dating (EFW 21%tile). ABHISHEK WNL. 3VC. COVID-19 vaccinated x 3 (06/18/2021- last booster) Influenza - declined Tdap - 04/12/2023 RSV - declined Glucola 103 GBS negative Physical exam: Normocephalic, atraumatic Heart RRR w/o M/G/R Lungs CTAB Abdomen gravid, soft, nontender FHR baseline 140s, moderate variability, + accels, no decels Contractions palpate moderate to strong every 2-4 minutes with soft resting tone SVE 3/80/-3 and vertex. Intact membranes. Bilateral LE's trace edema. Mood is good. Assessment: 23yo @ 39.6wks gestation by LMP c/w 6.0wk U/S Early labor FHR Category I GBS negative Plan: Admit to [facility] for expectant management. Continuous monitoring. Jacuzzi PRN. Nitrous oxide PRN. Epidural per maternal request. Anticipate .
--- NOTE | 2023-05-24 09:25 | PHARMACY PROGRESS NOTE ---
- Best Possible Medication History Admit Date and Time: 05/24/23 0742 Processed by: Pharmacy Medications reviewed in ED?: No Medication History completed: Yes Patient Interview: Pt unable to participate Secondary Source(s): Insurance records As the person ultimately responsible for medication therapy, providers are able to order a medication from an existing home medication list in [facility] via the "Reconcile Routine" prior to Confirmation of that medication by manager client support. Such practice is discouraged except when the physician, in their clinical judgment, deems that a medical need exists for a medication without regard to previous use.
[2023-05-24] MEDS: ONDANSETRON 4 MG/2 ML VIAL IVP PRN (10:32)
[2023-05-24] MEDS: OXYTOCIN/SODIUM CHLORIDE 500 ML IV PRN (13:25)
[2023-05-24] MEDS: LACTATED RINGERS 1,000 ML IV PRN (13:25)
[2023-05-24] MEDS ORDERED: HYDROCORTISONE 1% CREAM 28 GM TUBE PR PRN (13:45)
[2023-05-24] MEDS ORDERED: WITCH HAZEL/GLYCERIN 1 PAD TOP PRN (13:45)
[2023-05-24] MEDS ORDERED: KETOROLAC 10 MG TABLET PO PRN (13:49)
--- NOTE | 2023-05-24 13:57 | DELIVERY NOTE ---
Delivery Note - Labor Labor: positive: Spontaneous - Delivery Method Delivery Method: positive: Spontaneous vaginal delivery - Presentation Presentation: positive: Vertex, HAFSA - left occiput anterior - Nuchal Cord Nuchal Cord: positive: None - Amniotic Fluid Description Amniotic Fluid Description: positive: Clear - Episiotomy Type Episiotomy Type: positive: None - Laceration Laceration: positive: 1st degree, Vaginal - Suture Suture Type: positive: Vicryl Suture Size: positive: 3-0 - Delivery Outcome Delivery Outcome: positive: Livebirth - [place]: positive: Placed in direct skin contact with mother, Stimulated, Warmed, [place] used sex: positive: Female - Cord Cord: positive: 3 vessels - Placenta Placenta: positive: Intact, Spontaneous - Estimated Blood Loss Estimated Blood Loss (in cc): 150 - Post Delivery Events Post Delivery Events: positive: No post delivery events - Delivery Comments (Free Text/Narrative) Delivery Comments (Free Text/Narrative): Labor: This 23yo @ 39.6wks gestation by LMP c/w 6.0wk U/S presents to [facility] with c/o contractions. Upon arrival she was noted to be in early labor and cervix was 3/80/-3 and vertex with intact membranes. FHR pattern demonstrated a Category I pattern throughout labor. Normal labor course. AROM occurred at 1222 and was noted to be a small amount of clear fluid. Pt progressed spontaneously to c/c/+1 at 1256. : Normal SVB of viable female on 05/24/2023 @ 1303. No nuchal cord. The was placed on maternal abdomen, stimulated, dried, and placed skin to skin. 's were 8/9 at 1 and 5 minutes respectively. Pitocin administered via IV for hemostasis. The umbilical cord was allowed to stop pulsating at which time it was doubly clamped by CNM and cut by FOB. 3VC. Cord blood was obtained. Fundal massage and gentle cord traction applied for active management of the third stage. Placenta delivered spontaneously and intact at 1313. EBL 150mL. Fourth stage: Uterine fundus firm and there is no excessive bleeding. The perineum, vagina, and cervix were inspected and found to have minor 1st degree vaginal laceration which was repaired with 1 interrupted stitch using a 3-[address]-1 needle in standard fashion and under sterile conditions. Vaginal examination following repair was done. Tissues well approximated. initiated. Family bonding well. Both mother and baby were left in stable condition.
[2023-05-24] MEDS: lidocaine 1% 20 ML MDV ID PRN (14:34)
[2023-05-24] MEDS: ACETAMINOPHEN 500 MG TABLET PO SCH (14:35)
[2023-05-24] MEDS: KETOROLAC 30 MG/ML VIAL IVP PRN (14:36)
[2023-05-24] MEDS: CALCIUM CARBONATE CHEW 500 MG TABLET PO PRN (20:27)
[2023-05-25] MEDS: IBUPROFEN 800 MG TABLET PO SCH (08:05)
--- NOTE | 2023-05-25 09:58 | Discharge Plan ---
Discharge Plan Problem Reviewed?: Yes Disposition: Home, Self Care Condition: Good Diet: Regular Activity Restrictions: No Restrictions Shower Restrictions: No Driving Restrictions: No Weight Bearing: Full Weight Instruction Topics: Vaginal After, Breastfeed Holds, Nutrition , Self Care No Smoking: If you smoke, Please STOP! Call for help. Follow-up with: Abigail Gunderson CNM, VIVIAN [Provider Admit Priv/Credential] - 1 Week
--- NOTE | 2023-05-25 10:03 | DISCHARGE SUMMARY ---
Discharge Summary Condition at Discharge: Good Discharge Disposition: 01 Home, Self Care - HOSPITAL COURSE Hospital Course: Date of Admission: 05/24/2023 Date of Discharge: 05/25/2023 Diagnosis on Admission: 23yo @ 39.6wks gestation Early labor FHR Category I GBS negative Diagnosis on Discharge: 23yo s/p TSVB viable female infant Normal recovery Brief history: She is a patient of [facility] who presented on 05/24/2023 in early labor. She progressed spontaneously to deliver a viable female on 05/24/2023 @ 1303. Apgars were 8/9 at 1 and 5 minutes respectively. EBL 150mL. She had a minor 1st degree vaginal laceration which was repaired with 1 interrupted stitch in standard fashion and under sterile conditions. She has been doing well in her course. She is ambulating and tolerating a regular diet. She is urinating without difficulty and her lochia is normal. Her pain is well controlled with oral medications. She is without difficulty and she is bonding well with her baby. She will be discharged home today on day #1 with instructions to continue taking her vitamin while and to continue taking ibuprofen and tylenol over the counter for pain management. She intends to follow up with myself at [facility] in 1 week for routine visit or sooner if needed. She has been given precautions to call if she has any worsening fevers, chills, abdominal pain, increased vaginal bleeding or foul smelling vaginal lochia. Physical Exam: Normocephalic, atraumatic. Heart RRR w/o M/G/R. Lungs CTAB. Abdomen soft and nontender with fundus firm at U. Perineum intact, light lochia rubra. Repair without edema. Bilateral LE's no edema. - ALLERGIES Allergies/Adverse Reactions: Allergies Allergy/AdvReac Type Severity Reaction Status Date / Time Antihistamines - Piperidine Allergy Respiratory Verified 09/22/22 10:13 naproxen [From Aleve] AdvReac Itching Verified 09/22/22 10:13 - MEDICATIONS Home Medications: Ambulatory Orders Medication Instructions Recorded Confirmed Omeprazole Magnesium 20 mg PO DAILY 06/22/20 05/24/23 - LABS Result Diagrams: 05/24/23 08:00
[2023-05-25 10:11] VITALS: BP 122/70; O2SAT 97
[2023-05-25] MEDS: PANTOPRAZOLE 40 MG TABLET PO SCH (10:18)
--- NOTE | 2023-05-25 15:10 | Labor Flowsheet ---
Labor Flowsheet Datetime Report Generated by CPN: 05/25/2023 15:10 Datetime: 05/25/2023 09:54 VITAL SIGNS NBP Sys/Kalyn/Mean (mmHg): 122 : 70 : 83 Pulse: 76 Datetime: 05/24/2023 17:36 Stage of : Datetime: 05/24/2023 13:52 Membranes Ruptured Date/Time: 05/24/2023 12:22 Amniotic Fluid Odor: Normal Datetime: 05/24/2023 12:56 VAGINAL EXAM Dilatation (cm): 10.0 Effacement (%): 100 Station: 1 Exam by: Abigail STAGE 2 Pushing: Coached on Pushing; Urge to Push Pushing Position: Pushing with Contractions; Pushing Lithotomy Pushing Progress: Descent with Pushing Datetime: 05/24/2023 12:22 Membrane Status: Ruptured Membranes Rupture Method: Artificial Amniotic Fluid Color: Clear Amniotic Fluid Amount: Small Datetime: 05/24/2023 12:07 COMMUNICATION LaborFlag: Labor Datetime: 05/24/2023 11:40 Comments: intermittent MHR tracing Datetime: 05/24/2023 11:07 Patient Position/Activity: Standing Datetime: 05/24/2023 11:04 Cervix, Consistency: Soft Cervix, Position: Midposition Datetime: 05/24/2023 10:40 Patient Care Comments: sitting on edge of bed using nitrous Datetime: 05/24/2023 10:32 MEDICATIONS Antiemetics/Antacids: Zofran (mg) @ 4 Datetime: 05/24/2023 10:10 Vital Sign Comments: requests antiemetics MATERNAL ASSESSMENT Nausea/Vomiting: Present Datetime: 05/24/2023 09:13 Monitor Interventions for UA: [place] Adjusted Monitor Interventions for FHR: Ultrasound Adjusted Datetime: 05/24/2023 09:00 UTERINE ACTIVITY Monitor Mode: External Frequency (min): 2-5 Quality: Moderate Duration (sec): 40-70 Pattern: Normal: <= 5 Contractions in 10 Minutes Resting Tone (Palpate): Relaxed Contraction Comments: coupling noted ASSESSMENT A Monitor Mode: Telemetry FHR Baseline Rate : 135 Variability: Moderate 6-25 bpm Accelerations: 15X15 Decelerations: None Category: Category I Datetime: 05/24/2023 08:07 Temperature (C): 36.8 Datetime: 05/24/2023 07:53 PATIENT CARE IV/Blood Work: IV Started
== END 2023-05-25 14:50 | disposition home or self-care (01) | DRG 807 ==
LOC: WFO 03:38 → FBP 03:41 → WFO 07:41 → FBP 07:42
PROVIDERS: ADMIT Nurse Practitioner Obstetrics & Gynecology; ATTEND Nurse Practitioner Obstetrics & Gynecology
PROC: 10907ZC Drainage of Amniotic Fluid, Therapeutic from Products of Conception, Via Natural or Artificial Opening (ICD-10-PCS; principal; 2023-05-24)
PROC: 10E0XZZ Delivery of Products of Conception, External Approach (ICD-10-PCS; 2023-05-24)
PROC: 0HQ9XZZ Repair Perineum Skin, External Approach (ICD-10-PCS; 2023-05-24)
DX: O70.0 First degree perineal laceration during delivery (principal); Z37.0 Single live birth; Z3A.39 39 weeks gestation of pregnancy
CPT/HCPCS: 36415; 59409; 85025; 86850; 86900; 86901; 99215; A9270; J7120